=== PATIENT | male | born 1930 | race Caucasian/White ===

== ENCOUNTER 2016-11-08 12:19 | Inpatient (IN) | payer MEDICARE ==
[~2016-11-08] VITALS: Ht 172.7 cm; Wt 110.0 kg
[~2016-11-08 12:19] MED LIST: ACTOS PO; ALLOPURINOL PO; ASPI325T32 PO; D50KC PO; GLUC-113 PO; IRB150T PO; MULT-608 PO; OMEG1CAP51 PO; POLY119P PO; POTA10TA17 PO; SIMV20TA3 PO
--- OUTSIDE RECORDS SUMMARY | 2016-11-08 12:28 | XMS REPORT | Continuity of Care Document ---
Author Author [facility] Organization [facility] Address Unknown Phone Unavailable Allergies Active Description Code Type Severity Reaction Onset Reported/Identified Relationship to Patient Clinical Status Yes No Known Drug Allergies [id number] Drug Allergy Unknown N/ A 02/12/2014 Medications Problems Date Dx Coded Attending Type Code Diagnosis Diagnosed By 08/12/2014 AUTUMN CHAPMAN APRN Ot V43.64 08/12/2014 AUTUMN CHAPMAN APRN Ot V54.81 08/12/2014 AUTUMN CHAPMAN APRN Ot V57.1 Procedures Results Encounters ACCT No. Visit Date/Time Discharge Status Pt. Type Provider Facility Loc./Unit Complaint [id number] 08/21/2014 11:01:00 2014 10:54:00 DIS Outpatient AUTUMN CHAPMAN APRN [facility] REHAB [id number] 03/07/2014 09:30:00 2013 23:59:59 CLS Outpatient [id number] 02/28/2014 10:30:00 2013 23:59:59 CLS Outpatient [id number] 02/28/2014 10:30:00 2013 23:59:59 CLS Outpatient [id number] 02/19/2014 07:06:00 2013 18:10:00 DIS Inpatient [id number] 02/12/2014 10:31:00 2013 23:59:59 CLS Outpatient
--- NOTE | 2016-11-08 13:19 | ED General ---
General Stated Complaint: FLU SYMPTOMS Source of Information: Patient Exam Limitations: No Limitations History of Present Illness Time Seen by Provider: 13:17 Initial Comments To ER from home with reports of flulike symptoms since July. These include cough, shortness of breath general weakness and he also believes himself to be dehydrated. No fevers. He states that he's had no appetite and essentially nothing for the past week Timing/Duration: Intermittent, Other Severity: Moderate Associated Systoms: No Chest Pain, CoughNo Diaphoresis, No Fever/Chills, No Headaches, No Loss of Appetite, MalaiseNo Nausea/Vomiting, No Rash, No Seizure , No Shortness of Air, No Syncope, Weakness Allergies and Home Medications Allergies Coded Allergies: No Known Drug Allergies (Unverified , 02/12/14) Home Medications 20 MG PO DAILY (Reported) 150 MG PO DAILY (Reported) Aspirin 325 Mg Tablet.dr 164.5 MG PO DAILY (Reported) TAKE 1/2 OF (325MG) TAB Ergocalciferol 50,000 Unit Capsule 50,000 UNIT PO WEEKLY (Reported) Gluc 2KCL/Chondr/Gabby Hy/Hy Ac 1 Each Capsule 2 TAB PO DAILY (Reported) Irbesartan 150 Mg Tab 150 MG PO DAILY (Reported) Multivitamins 1 Tab Tablet 1 TAB PO DAILY (Reported) Bethesda-3 Fatty Acids/Fish Oil 1 Each Capsule 2,000 MG PO DAILY (Reported) TAKE 2 (1,000MG) TAB Polyethylene Glycol 119 Gm Btl 17 GM PO DAILY (Reported) Potassium Citrate 10 Meq Tablet.sa 10 MEQ PO DAILY (Reported) Simvastatin 20 Mg Tablet 20 MG PO DAILY (Reported) Constitutional: see HPINo fever EENTM: see HPI Respiratory: see HPI cough Cardiovascular: see HPINo chest pain, edemaNo Hx of Intervention, No palpitations, No syncope, vascular heart diseas (CABG 20 years ago at [facility] in [place]) Genitourinary: no symptoms reported Musculoskeletal: no symptoms reported Skin: no symptoms reported Psychiatric/Neurological: No Symptoms Reported Hematologic/Lymphatic: No Symptoms Reported Immunological/Allergic: no symptoms reported Past Ujankeb-Ltuhwq-Mirrzm Hx Patient Social History Recent Foreign Travel: No Contact w/Someone Who Travel: No Immunizations Up To Date Tetanus Booster (TDap): Unknown Date of Pneumonia Vaccine: Sep 05, 2012 Surgeries HX Surgeries: Yes (FINGERS REATTACHED, TESTICLE REMOVED, RHINOPLASTY, KIDNEY STONES ) Respiratory Hx Respiratory Disorders: Yes (DOESNT' USE CPAP) Respiratory Disorders: Sleep Apnea Cardiovascular Hx Cardiac Disorders: Yes (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, CABG) Neurological Hx Neurological Disorders: No Genitourinary Hx Genitourinary Disorders: No Gastrointestinal Hx Gastrointestinal Disorders: No Musculoskeletal Hx Musculoskeletal Disorders: Yes Musculoskeletal Disorders: Arthritis Endocrine Hx Endocrine Disorders: Yes Endocrine Disorders: Diabetes, Non-Insulin dep Cancer Hx Cancer: Yes Cancer: Skin Psychosocial Hx Psychiatric Problems: No Integumentary HX 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) Skin/Integumentary Disorders: Psoriasis Blood Transfusions Hx Blood Disorders: No Family Medical History Family Medial History: Congestive heart failure 19 FATHER Family history: Cardiovascular disease 19 FATHER Family history: Diabetes mellitus 19 FATHER History of - respiratory disease 19 FATHER No Family History of: Abdominal aortic aneurysm Alcoholism Cancer Family history: Alzheimer's disease Family history: Arthritis Family history: Asthma Family history: Breast disease Family history: Gastrointestinal disease Family history: Hypertension Family history: Thyroid disorder Hereditary disease History of - anemia Kidney disease Myocardial infarction Parkinson's disease Prostate cancer Psychotic disorder Seizure disorder Stroke Physical Exam Vital Signs Vital Sign - Last 12Hours 11/08/16 13:42 Temp 100.6 Pulse 123 Resp 20 B/P 104/53 O2 Delivery Room Air Capillary Refill : General Appearance: No Apparent Distress WD/WN Eyes: Bilateral Eye EOMI, Bilateral Eye Normal Inspection, Bilateral Eye PERRL HEENT: PERRL/EOMI TMs Normal Neck: Full Range of Motion Normal Inspection Respiratory: Chest Non Tender No Accessory Muscle Use No Respiratory Distress Decreased Breath Sounds Cardiovascular: Irregularly Irregular Tachycardia Gastrointestinal: Normal Bowel Sounds Non Tender Soft Extremity: Normal Capillary Refill Pedal Edema (3+ bilateral lower extremities ) Neurologic/Psychiatric: Alert Oriented x3 No Motor/Sensory Deficits Skin: Normal Color Warm/Dry (was) Progress/Results/Core Measures Results/Orders Lab Results Laboratory Tests Test 11/08/16 13:55 Range/Units Alanine Aminotransferase (ALT/SGPT) 15 0-55 U/L Albumin 3.2 3.2-4.5 G/DL Alkaline Phosphatase 102 40-136 U/L Anion Gap 11 5-14 MMOL/L Anisocytosis MARKED Aspartate Amino Transf (AST/SGOT) 17 5-34 U/L B-Type Natriuretic Peptide 262.5 H <100.0 PG/ML BUN/Creatinine Ratio 30 Band Neutrophils 0 % Basophilic Stippling SLIGHT Basophils # (Auto) 0.1 0.0-0.1 10^3/uL Basophils % (Manual) 0 % Basophils (%) (Auto) 1 0-10 % Blood Urea Nitrogen 35 H 7-18 MG/DL Calcium Level 9.1 8.5-10.1 MG/DL Carbon Dioxide Level 20 L 21-32 MMOL/L Chloride Level 101 98-107 MMOL/L Creatinine 1.17 0.60-1.30 MG/DL Eosinophils # (Auto) 0.0 0.0-0.3 10^3/uL Eosinophils % (Manual) 0 % Eosinophils (%) (Auto) 0 0-10 % Estimat Glomerular Filtration Rate 59 Glucose Level 205 H 70-105 MG/DL Hematocrit 22 L 40-54 % Hemoglobin 6.9 *L 13.3-17.7 G/DL Hypochromasia MODERATE INR Comment 1.4 0.8-1.4 Lactic Acid Level 3.18 *H 0.50-2.00 MMOL/L Lymphocytes # (Auto) 2.9 1.0-4.0 X 10^3 Lymphocytes % (Manual) 49 % Lymphocytes (%) (Auto) 59 H 12-44 % Mean Corpuscular Hemoglobin 25 25-34 PG Mean Corpuscular Hemoglobin Concent 31 L 32-36 G/DL Mean Corpuscular Volume 81 80-99 FL Mean Platelet Volume 7.4-10.4 FL Monocytes # (Auto) 1.4 H 0.0-1.0 X 10^3 Monocytes % (Manual) 34 % Monocytes (%) (Auto) 28 H 0-12 % Neutrophils # (Auto) 0.6 L 1.8-7.8 X 10^3 Neutrophils % (Manual) 17 % Neutrophils (%) (Auto) 12 L 42-75 % Nucleated Red Blood Cells 50 Platelet Count 14 *L 130-400 10^3/uL Polychromasia SLIGHT Potassium Level 5.1 H 3.6-5.0 MMOL/L Prothrombin Time 17.0 H 12.2-14.7 SEC Red Blood Count 2.71 L 4.35-5.85 10^6/uL Red Cell Distribution Width 22.4 H 10.0-14.5 % Sodium Level 132 L 135-145 MMOL/L Thyroid Stimulating Hormone (TSH) 1.25 0.35-4.94 UIU/ML Total Bilirubin 1.9 H 0.1-1.0 MG/DL Total Protein 7.4 6.4-8.2 G/DL Troponin I < 0.30 <0.30 NG/ML White Blood Count 3.3 L 4.3-11.0 10^3/uL My Orders Orders-BAILEYRONAL APRN Protime With Inr (11/08/16 12:58) Cbc With Automated Diff (11/08/16 12:58) Troponin I (11/08/16 12:58) BNP (11/08/16 12:58) Comprehensive Metabolic Panel (11/08/16 12:58) Thyroid Stimulating Hormone (11/08/16 12:58) Saline Lock/Iv-Start (11/08/16 12:58) Blood Culture (11/08/16 12:58) Lactic Acid Analyzer (11/08/16 12:58) Ua Culture If Indicated (11/08/16 12:58) Chest Pa/Lat (2 View) (11/08/16 13:26) Ns Iv 1000 Ml (Sodium Chloride 0.9%) (11/08/16 14:15) Red Cells Leukocytes Reduced (11/08/16 14:21) Type And Screen (11/08/16 14:21) Acetaminophen Tablet (Tylenol Tablet) (11/08/16 15:00) Piperacillin Sodium/Tazobactam (Zosyn Vi (11/08/16 15:00) Manual Differential (11/08/16 15:13) Smear For Path Review (11/08/16 15:13) Smear For Path Review (11/08/16 13:55) Medications Given in ED Current Medications Medications Dose Ordered Sig/Karley Route Start Time Stop Time Status Last Admin Dose Admin Acetaminophen 1000 mg 1,000 mg ONCE ONCE PO 11/08/16 15:00 11/08/16 15:01 DC 11/08/16 15:13 1,000 MG Piperacillin Sod/ Tazobactam Sod/ Sodium Chloride 100 ml @ 200 mls/hr ONCE ONCE IV 11/08/16 15:00 11/08/16 15:29 11/08/16 15:19 200 MLS/HR Vital Signs/I&O Vital Sign - Last 12Hours 11/08/16 11/08/16 13:42 15:13 Temp 100.6 100.7 Pulse 123 Resp 20 B/P 104/53 O2 Delivery Room Air Progress Note : Progress Note 1432-I discussed the patient's anemia and low platelet count with him. He denies any dark or tarry stools. He states that he's had no appetite for one week so he has not been eating. He has recent lab work with him and the most recent CBC that I can find is from November 2014 showing a platelet count of 97 and hemoglobin 13.1. Departure Communication Time/Spoke to Admitting Phy: 15:[address] Foster. We will admit the patient, consult for cardiology and hematology. Time/Spoke to Consulting Physi: 15:17 Communication/Consulting Discussed with Dr. Dent who agrees to consult. Recommends transfusion 1 unit of packed red cells, manual differential/peripheral smear Progress Notes Patient's fecal occult blood at the bedside is negative. He does wish to be a DO NOT RESUSCITATE status Impression Impression: Primary Impression: Pancytopenia Additional Impressions: Pneumonia Sepsis Disposition: ADMITTED INPATIENT Condition: Critical Decision to Admit Reason: Admit from ER (General) Decision to Admit/Date: Nov 08, 2016 Departure-Patient Inst. Referrals: MONIQUE VALDES MD (PCP/Family) Primary Care Physician RONAL BAILEY APRN Nov 08, 2016 13:19
[2016-11-08 14:14] LABS: BASOPHILS # (AUTO) 0.1 10^3/uL (0.0-0.1); BASOPHILS % (AUTO) 1 % (0-10); EOSINOPHILS % (AUTO) 0 % (0-10); LYMPHOCYTES # (AUTO) 2.9 X 10^3 (1.0-4.0); LYMPHOCYTES % (AUTO) 59 % (12-44); MEAN CORPUSCULAR HGB CONC 31 G/DL (32-36); MEAN CORPUSCULAR VOLUME 81 FL (80-99); MONOCYTES # (AUTO) 1.4 X 10^3 (0.0-1.0); MONOCYTES % (AUTO) 28 % (0-12); NEUTROPHILS # (AUTO) 0.6 X 10^3 (1.8-7.8); NEUTROPHILS % (AUTO) 12 % (42-75); RED BLOOD COUNT 2.71 10^6/uL (4.35-5.85); RED CELL DISTRIBUTION WIDTH 22.4 % (10.0-14.5)
[2016-11-08] MEDS ORDERED: NS IV 1000 ML 1,000 ML IV SCH (14:15)
[2016-11-08 14:20] LABS: MEAN CORPUSCULAR HEMOGLOBIN 25 PG (25-34)
[2016-11-08 14:22] LABS: PLATELET COUNT 14 10^3/uL (130-400)
[2016-11-08 14:35] LABS: ALANINE AMINOTRANSFERASE 15 U/L (0-55); ALBUMIN 3.2 G/DL (3.2-4.5); ANION GAP 11 MMOL/L (5-14); ASPARTATE AMINO TRANSFERASE 17 U/L (5-34); BILIRUBIN,TOTAL 1.9 MG/DL (0.1-1.0); BLOOD UREA NITROGEN 35 MG/DL (7-18); BUN/CREATININE RATIO 30; CALCIUM 9.1 MG/DL (8.5-10.1); CARBON DIOXIDE 20 MMOL/L (21-32); CHLORIDE 101 MMOL/L (98-107); CREATININE SERUM 1.17 MG/DL (0.60-1.30); GFR ESTIMATED 59; GLUCOSE 205 MG/DL (70-105); POTASSIUM 5.1 MMOL/L (3.6-5.0); SODIUM 132 MMOL/L (135-145); TOTAL PROTEIN 7.4 G/DL (6.4-8.2)
[2016-11-08 14:36] LABS: INR 1.4 (0.8-1.4)
--- NOTE | 2016-11-08 14:42 | Diagnostic Imaging Report ---
INDICATION: Weakness and dyspnea for one month. DISCUSSION: Two views of the chest were obtained, comparison 02/12/2014. [id number] bilateral pleural effusions are present. Patchy opacities are present within the left lung base, atelectasis and/or pneumonia. Mild cardiomegaly is stable. Median sternotomy is again noted. Advanced degenerative changes are present within the shoulders. No acute osseous abnormality. IMPRESSION: 1. Cardiomegaly with [id number] bilateral pleural effusions. No josafat pulmonary edema. 2. Left lung base opacities, atelectasis and/or pneumonia. Dictated by: Dictated on workstation # [id number]
[2016-11-08 14:43] LABS: BAND NEUTROPHILS 0 %; BASOPHILS % (MANUAL) 0 %; EOSINOPHILS % (MANUAL) 0 %; LYMPHOCYTES % (MANUAL) 49 %; NEUTROPHILS % (MANUAL) 17 %; POLYCHROMASIA SLIGHT
[2016-11-08 14:44] LABS: ANISOCYTOSIS MARKED; HYPOCHROMASIA MODERATE
[2016-11-08 14:46] LABS: WHITE BLOOD COUNT 3.3 10^3/uL (4.3-11.0)
[2016-11-08 14:56] LABS: THYROID STIMULATING HORMONE 1.25 UIU/ML (0.35-4.94); TROPONIN I < 0.30 NG/ML (<0.30)
[2016-11-08] MEDS ORDERED: PIPERACILLIN SODIUM/TAZOBACTAM 4.5 GM in NS (IVPB) 100 ML IV ONE (15:00)
[2016-11-08] MEDS ORDERED: ACETAMINOPHEN 500 MG TAB (TYLENOL) PO ONE (15:00)
[2016-11-08 15:27] LABS: PATH WILL NEED TO REVIEW SMEAR PATH TO REVIEW
[2016-11-08 15:28] LABS: RETICULOCYTE % 1.99 % (0.50-2.40)
[2016-11-08 16:20] VITALS: BP 107/68
[2016-11-08] MEDS ORDERED: ACETAMINOPHEN 325 MG TABLET/CAPLET (TYLENOL) PO PRN (16:30)
[2016-11-08] MEDS ORDERED: CATHETER FLUSH 10 ML SYR IV PRN (16:30)
[2016-11-08] MEDS: NS IV 1000 ML 1,000 ML IV SCH ×2 (16:32→23:10)
[2016-11-08] MEDS: NS IV 500 ML 500 ML IV SCH (16:36)
[2016-11-08] MEDS ORDERED: LEVOFLOXACIN 750 MG/150 ML IV 150 ML IV SCH (17:00)
[2016-11-08] MEDS ORDERED: IRBE300T18 PO (17:19)
[2016-11-08] MEDS ORDERED: PIOG30TA38 PO (17:19)
[2016-11-08] MEDS ORDERED: SIMV40TA4 PO (17:19)
--- NOTE | 2016-11-08 17:45 | Consultation-Cardiology ---
HPI-Cardiology Cardiology Consultation: Date of Consultation 11/08/16 Date of Admission Attending Physician Leni Foster DO Admitting Physician Toi Toscano MD Consulting Physician HILARY TARIQ MD, FACP, FACC, [facility] [place], CCDS Physician requesting consult: Dr Foster HPI: Chief Complaint: Malaise and tiredness 86 yo man who had flu-like symptoms in Jul 2016 and since had malaise and tiredness. Symptoms had progressed considerably in the last several days and he decided to come to the ER from where he has been admitted to Dr Foster for management of septicemia and pancytopenia. He has a h/o CABG. We have been asked in cardiac comanagement. He does not report cp or palp or syncope. Does have mod exertional shortness of breath. Has mild chronic leg swelling. Denies recent fever or chills Review of Systems-Cardiology Review of Systems Constitutional: As described under HPI Eyes: No vision change Ears/Nose/Throat: No ear discharge, No nasal drainage, No recent hearing loss Respiratory: As described under HPI Cardiovascular: As described under HPI Gastrointestinal: No constipation, No diarrhea, No nausea, No vomiting Genitourinary: No dysuria, No hematuria, No urine frequency changes Musculoskeletal: back pain (chronic) joint pain (chroic) Skin: No rash, No ulcerations Psychiatric/Neurological: No focal weakness, No seizure, No syncope Hematologic: No bleeding abnormalities UYV-Bmtgxn-Sltbva Hx Patient Social History Alcohol Use: Denies Use Recreational Drug Use: No Smoking Status: Former Smoker 2nd Hand Smoke Exposure: No Recent Foreign Travel: No Recent Infectious Disease Expo: No Hospitalization with Isolation: Denies Physical Abuse Screen: No Sexual Abuse: No Immunizations Up To Date Tetanus Booster (TDap): Unknown Date of Pneumonia Vaccine: Sep 05, 2012 Date of Influenza Vaccine: Jun 05, 2016 Past Medical History PMH As described under Assessment. Family Medical History Family History: Congestive heart failure 19 FATHER Family history: Cardiovascular disease 19 FATHER Family history: Diabetes mellitus 19 FATHER History of - respiratory disease 19 FATHER No Family History of: Abdominal aortic aneurysm Alcoholism Cancer Family history: Alzheimer's disease Family history: Arthritis Family history: Asthma Family history: Breast disease Family history: Gastrointestinal disease Family history: Hypertension Family history: Thyroid disorder Hereditary disease History of - anemia Kidney disease Myocardial infarction Parkinson's disease Prostate cancer Psychotic disorder Seizure disorder Stroke Allergies and Home Medications Allergies Coded Allergies: No Known Drug Allergies (Unverified , 11/08/16) Home Medications Irbesartan 300 Mg Tablet 150 MG PO DAILY (Reported) TAKES 1/2 OF A (300 MG) TABLET Multivitamins 1 Tab Tablet 1 TAB PO DAILY (Reported) Pioglitazone HCl 30 Mg Tablet 15 MG PO DAILY (Reported) TAKES 1/2 OF A (30 MG) TABLET Simvastatin 40 Mg Tablet 20 MG PO DAILY (Reported) TAKES 1/2 OF A (40 MG) TABLET Physical Exam-Cardiology Physical Exam Vital Signs/I&O Vital Sign - Last 12Hours 11/08/16 11/08/16 11/08/16 11/08/16 13:42 15:13 16:20 16:20 Temp 100.6 100.7 98.1 Pulse 123 108 Resp 20 18 B/P 104/53 107/68 Pulse Ox 97 97 O2 Delivery Room Air Room Air Room Air 11/08/16 16:20 Temp 98.1 Pulse 108 Resp 18 B/P 107/68 Pulse Ox 97 O2 Delivery Room Air Capillary Refill : Less Than 3 SecondsLess Than 3 Seconds Constitutional: AAO x 3 well-developed well-nourished HEENT: EOMI hearing is well preservedNo xanthelasmas are seen Neck: carotid pulses are 2 + bilaterally with good upstrokes Respiratory: No accessory muscle use, other (fair bilateral air entry but diminished at the bases) Cardiovascular: regular rate-rhythm S1 and S2 systolic murmur (soft GEETA at cardiac base) Gastrointestinal: No tender, softNo guarding, No rebound, audible bowel sounds Extremities: other (mild bilat leg edema)No clubbing, No cyanosis Neurologic/Psychiatric: grossly intact power is 5/5 both on sides Skin: No rash on exposed areas, No ulcerations on exposed areas Data Review Labs Laboratory Tests 11/08/16 13:55: Absolute Reticulocyte Count 55, Alanine Aminotransferase (ALT/SGPT) 15, Albumin 3.2, Alkaline Phosphatase 102, Anion Gap 11, Anisocytosis MARKED, Aspartate Amino Transf (AST/SGOT) 17, B-Type Natriuretic Peptide 262.5H, BUN/Creatinine Ratio 30, Band Neutrophils 0, Basophilic Stippling SLIGHT, Basophils # (Auto) 0.1, Basophils % (Manual) 0, Basophils (%) (Auto) 1, Blood Urea Nitrogen 35H, Calcium Level 9.1, Carbon Dioxide Level 20L, Chloride Level 101, Creatinine 1.17 , Eosinophils # (Auto) 0.0, Eosinophils % (Manual) 0, Eosinophils (%) (Auto) 0, Estimat Glomerular Filtration Rate 59, Glucose Level 205H, Hematocrit 22L, Hemoglobin 6.9*L, Hypochromasia MODERATE, INR Comment 1.4, Lactic Acid Level 3.18*H, Lymphocytes # (Auto) 2.9, Lymphocytes % (Manual) 49, Lymphocytes (%) ( Auto) 59H, Mean Corpuscular Hemoglobin 25, Mean Corpuscular Hemoglobin Concent 31L, Mean Corpuscular Volume 81, Mean Platelet Volume , Monocytes # (Auto) 1.4H , Monocytes % (Manual) 34, Monocytes (%) (Auto) 28H, Neutrophils # (Auto) 0.6L, Neutrophils % (Manual) 17, Neutrophils (%) (Auto) 12L, Nucleated Red Blood Cells 50, Percent Reticulocyte Count 1.99, Platelet Count 14*L, Polychromasia SLIGHT, Potassium Level 5.1H, Prothrombin Time 17.0H, Red Blood Count 2.71L, Red Cell Distribution Width 22.4H, Sodium Level 132L, Thyroid Stimulating Hormone (TSH) 1.25, Total Bilirubin 1.9H, Total Protein 7.4, Troponin I < 0.30, White Blood Count 3.3L 11/08/16 15:57: Lactic Acid Level 2.05*H Laboratory Tests 11/08/16 13:55 A/P-Cardiology Assessment/Admission Diagnosis * Septicemia * Pancytopenia, including marked anemia and thrombocytopenia * Ac renal insuff, likely due to prerenal azotemia due to volume depletion * No evidence of CHF (despite elevated BNP, which may be related to acute renal failure) * CAD, with a remote history of CABG, details unknown * S/p R hip replacement in 2013 Discussion and Recomendations * Complex management due to multiple comorbidities * iv fluids, given septicemia and pre-renal azotemia * Management of septicemia and pancytopenia is with Dr Foster * Echo to eval LV function * Monitor labs * I spoke with him and his family and answered questions Clinical Quality Measures DVT/VTE Risk/Contraindication: Risk Factor Score Per Nursin RFS Level Per Nursing on Admit: 4+=Very High HILARY TARIQ MD FACP FAC CCDS Nov 08, 2016 17:45
--- NOTE | 2016-11-08 18:08 | Progress Note-Standard ---
Standard Progress Note Progress Notes/Assess & Plan Progress/Assessment & Plan 86-year-old male admitted with 3-4 month history of increasing weakness and body aches with significant worsening of symptoms during the past week. Decreased oral intake during the last week as patient mentions he was not eating at all. Evidence of left lower lobe atelectasis/infiltrate and on broad spectrum antibiotics. Noted to have pancytopenia and hence the hematology consultation. The peripheral smear review confirmed pancytopenia. Patient has significant nucleated red blood cells on the peripheral smear. Red cells markedly abnormal with microcytosis and hypochromia. There is dimorphic population with some normal appearing red blood cells. Increased monocytes or myelocytes on the peripheral smear. Reactive or atypical lymphocytes noted. Markedly decreased platelets with no platelet clumps. Large platelets noted. He will need a bone marrow for further evaluation of pancytopenia. I will plan on doing this tomorrow 11/10/16 afternoon. Full consultation dictated. LUCIA SAUCEDO Nov 08, 2016 18:08
[2016-11-08 18:20] VITALS: BP 88/50
[2016-11-08 18:33] VITALS: BP 81/49
[2016-11-08 20:00] VITALS: BP 109/59
[2016-11-08] MEDS ORDERED: RT-ALBUTEROL/IPRATROPIUM 3 ML (DUONEB) VIAL ONE (20:02)
[2016-11-08 20:38] VITALS: BP 85/50
[2016-11-08] MEDS: PIPERACILLIN/TAZOBACTAM 4.5 GM/NS 100 ML IVPB IV SCH ×2 (20:47)
[2016-11-08] MEDS ORDERED: RT-ALBUTEROL/IPRATROPIUM 3 ML (DUONEB) VIAL INH PRN (21:00)
[2016-11-09] VITALS (20 sets, daily range): BP systolic 69–127; BP diastolic 49–82
[2016-11-09] MEDS: guaiFENesin/DM (ROBITUSSIN DM) 10 ML UDC PO PRN ×2 (01:02→06:39)
[2016-11-09] MEDS: NS IV 1000 ML 1,000 ML IV SCH ×2 (03:03→09:31)
[2016-11-09] MEDS: PIPERACILLIN/TAZOBACTAM 4.5 GM/NS 100 ML IVPB IV SCH ×6 (05:30→23:09)
[2016-11-09] MEDS: RT-ALBUTEROL/IPRATROPIUM 3 ML (DUONEB) VIAL INH SCH ×4 (06:26→20:36)
[2016-11-09 06:27] LABS: MEAN CORPUSCULAR HEMOGLOBIN 26 PG (25-34); MEAN CORPUSCULAR HGB CONC 32 G/DL (32-36); MEAN CORPUSCULAR VOLUME 82 FL (80-99); RED CELL DISTRIBUTION WIDTH 21.6 % (10.0-14.5)
[2016-11-09 06:30] LABS: PLATELET COUNT 23 10^3/uL (130-400)
[2016-11-09 06:52] LABS: CALCIUM 8.6 MG/DL (8.5-10.1); CREATININE SERUM 1.29 MG/DL (0.60-1.30); POTASSIUM 5.2 MMOL/L (3.6-5.0)
[2016-11-09 07:00] LABS: WHITE BLOOD COUNT 7.6 10^3/uL (4.3-11.0)
[2016-11-09 07:02] LABS: RED BLOOD COUNT 2.93 10^6/uL (4.35-5.85)
[2016-11-09 07:16] LABS: THYROID STIMULATING HORMONE 1.02 UIU/ML (0.35-4.94)
[2016-11-09] MEDS ORDERED: morphine INJ 10 MG/ML 1ML (SYR OR VIAL) ONE (09:26)
[2016-11-09] MEDS ORDERED: morphine INJ 4 MG/ML 1 ML (VIAL/SYRINGE) IVP PRN (09:30)
--- NOTE | 2016-11-09 10:03 | Progress Note-Cardiology ---
Cardiology SOAP Progress Note Subjective: C/O dyspnea with productive cough. No c/o CP, palpitations, syncope or near syncope. C/O gen weakness. Objective: I&O/Vital Signs Vital Sign - Last 12Hours 11/09/16 11/09/16 11/09/16 11/09/16 06:26 07:00 08:00 08:00 Temp 99.5 Pulse 102 108 Resp 24 B/P 108/60 Pulse Ox 92 99 O2 Delivery Nasal Cannula Room Air O2 Flow Rate 2.00 2.00 2.00 11/09/16 11/09/16 11/09/16 11/09/16 09:32 10:10 10:25 12:00 Temp 99.5 99.5 99.9 Pulse 102 Resp 24 B/P 122/82 Pulse Ox 94 96 O2 Delivery Nasal Cannula O2 Flow Rate 2.00 2.00 11/09/16 11/09/16 13:00 14:36 Pulse 101 Pulse Ox 91 O2 Flow Rate 4.00 Intake and Output 11/09/16 00:00 Intake Total 1350 ml Output Total 200 ml Balance 1150 ml Weight (Pounds): 232 Weight (Ounces): 0.0 Weight (Calculated Kilograms): [id number] Constitutional: AAO x 3 well-developed well-nourished Respiratory: No accessory muscle use, other (fair bilateral air entry but diminished at the bases) Cardiovascular: regular rate-rhythm S1 and S2 systolic murmur (soft GEETA at cardiac base) Gastrointestional: No tender, softNo guarding, No rebound, audible bowel sounds Extremities: other (mild bilat leg edema)No clubbing, No cyanosis Neurologic/Psychiatric: grossly intact power is 5/5 both on sides Skin: No rash on exposed areas, No ulcerations on exposed areas Results/Procedures: Labs Laboratory Tests 11/09/16 05:40: Anion Gap 13, BUN/Creatinine Ratio 29, Basophils # (Auto) , Basophils (%) (Auto ) , Blood Urea Nitrogen 37H, Calcium Level 8.6, Carbon Dioxide Level 16L, Chloride Level 103, Creatinine 1.29, Eosinophils # (Auto) , Eosinophils (%) ( Auto) , Estimat Glomerular Filtration Rate 53, Glucose Level 221H, Hematocrit 24L, Hemoglobin 7.7L, Lactate Dehydrogenase 186, Lymphocytes # (Auto) , Lymphocytes (%) (Auto) , Mean Corpuscular Hemoglobin 26, Mean Corpuscular Hemoglobin Concent 32, Mean Corpuscular Volume 82, Mean Platelet Volume , Monocytes # (Auto) , Monocytes (%) (Auto) , Neutrophils # (Auto) , Neutrophils ( %) (Auto) , Platelet Count 23*L, Potassium Level 5.2H, Red Blood Count 2.93L, Red Cell Distribution Width 21.6H, Sodium Level 132L, Thyroid Stimulating Hormone (TSH) 1.02, White Blood Count 7.6 Microbiology 11/08/16 Blood Culture - Preliminary, Resulted No growth A/P: Assessment: * Septicemia with metabolic acidosis * Pancytopenia, including marked anemia and thrombocytopenia * A fib with RVR * Not suitable for anticoag due to pancytopenia and coagulopathy * Ac renal insuff * Ac diastolic CHF (LVEF normal on echo of 11/09/16) * CAD, with a remote history of CABG, details unknown * S/p R hip replacement in 2013 Plan: * Complex management due to multiple comorbidities * iv fluids, given septicemia and pre-renal azotemia * Septicemia with metabolic acidosis being managed by medical services * Management of septicemia and pancytopenia is with Dr Foster * Echo to eval LV function - pending * Monitor labs Physician Assessment Physician Assessment More short of breath today Lungs: dec bs at bases Cor: irreg, tachy Mild bilat leg swelling Low urine output ECG: A fib with RVR A&R * As documented in our note above that I updated at the time of this writing * Complex management due to multiple comorbidities * I discussed his case in detail with Dr Ochoa of the Heme/Onc service * I have requested Pulm/Intensive Care consult with Dr Machado * We are starting oral dilt for vent rate control * He is not suitable for anticoag or antiplatelet therapy, given pancytopenia and coagulopathy * He seems to have a component of heart failure (acute diastolic) likely related to a fib with RVR. We will give furosemide x 1 DANIELLE LEI Nov 09, 2016 10:03 HILARY TARIQ MD [facility] Nov 09, 2016 16:21
[2016-11-09] MEDS ORDERED: ONDANSETRON 4 MG/2 ML (SDV) Z0FRAN IVP PRN (10:30)
--- NOTE | 2016-11-09 11:26 | CONSULTATION REPORT ---
DATE OF CONSULTATION: 11/09/2016 The patient is admitted to room 412 PHYSICIAN REQUESTING CONSULTATION: Leni Foster D.O. PRIMARY PHYSICIAN: Toi Toscano M.D. IMPRESSION: 1. 86-year-old male admitted with a few month history of increasing weakness but no significant history of fevers or infections, bleeding or weight loss. 2. Left lower lobe pneumonia, currently on broad spectrum antibiotics. 3. Pancytopenia of undetermined etiology with leukoerythroblastic picture in the peripheral smear. PLAN: 1. Agree with PRBC transfusion because of symptomatic anemia. 2. The patient will need a bone marrow aspiration and biopsy for further evaluation of pancytopenia. 3. Obtain serum iron studies, B12 and folate level from the lab work drawn in the emergency room. 4. We will schedule a bone marrow aspiration and biopsy on 11/10/2016. 5. Continue management of pneumonia, as you are doing with broad spectrum antibiotics. 6. Monitor blood work serially. 7. Will follow the patient with you. BRIEF HISTORY: Mr. Mulligan is a n 86-year-old male who has not been feeling well since the last 4 months with flulike symptoms which has not improved. He is having increasing shortness of breath and weakness over this time to the point that he has been almost bedridden during the last one week and has not been eating or drinking well. He denied fevers or chills, but has not been monitoring his temperature. He has easy bruising, but denied any significant bleeding. No chest pain, palpitations, orthopnea or PND. He had fairly significant dyspnea on exertion during the past few weeks. No diarrhea, constipation, hematochezia or melena. PAST MEDICAL HISTORY: 1. Significant for diabetes mellitus, type II diagnosed more than 30 years ago. He is on oral agents and diet with reasonable control of diabetes. 2. History of coronary artery disease, status post 5 or 6 vessel CABG approximately 20 years ago. 3. History of nephrolithiasis requiring lithotripsy. 4. 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 SURGERIES INCLUDE: 1. Injury to his finger which required surgical reattachment. 2. Rhinoplasty in the past. 3. Orchiectomy in the past, but he does not remember the indication. 4. He was diagnosed with obstructive sleep apnea in the past but could not tolerate the CPAP machine and has not been using this. 5. 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 SOCIAL HISTORY: The patient is and [place]. He has two living sons, both of whom live in [place]. He youngest son checks on him on a weekly basis. He has smoked for 10 years, but quit smoking by 27 years of age. He denied any significant alcohol or other recreational drug use. 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 He worked at [employer] for 5 years. 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 FAMILY HISTORY: Unremarkable with no major malignancies or hematologic problems that he knows of. PHYSICAL EXAMINATION: Today showed an elderly male, weak appearing, awake, and oriented, and answering questions appropriately. Temperature at the emergency room was 100.6, pulse rate of 123, respiratory rate 20, blood pressure 104/53. HEENT: Normocephalic, with male pattern baldness. Extraocular muscles intact. Conjunctivae pale, oral mucosa moist. NECK: Supple with no JVD. No cervical, supraclavicular, or axillary lymphadenopathy palpable. CHEST: Chest was symmetrical with previous sternotomy scar. LUNGS: With slightly diminished breath sounds bilaterally but no wheezes or rales heard. CARDIOVASCULAR EXAM: Regular with slightly distant sounds. No murmurs or gallops heard. ABDOMEN: Slightly distended, soft, nontender, with no definite hepatosplenomegaly or other masses palpable. EXTREMITIES: Showed trace edema around the ankles and few ecchymosis but no petechiae noted. NEUROLOGICAL EXAM: Showed no focal motor deficits. Overall motor strength was 4/5 bilaterally. LABORATORY: CBC done at the emergency room showed WBC 3.3, hemoglobin 6.9, with MCV 81 RDW 22.4, and platelet count of 14,000. Automated differential count showed neutrophil count of 0.6, lymphocyte count 2.9, and monocyte count 1.4. I reviewed the peripheral smear which showed the red cells to be markedly abnormal with microcytosis hyperchromia, as well as a dimorphic population with some normal appearing red blood cells. A significant number of nucleated red blood cells noted. White blood cells showed increase in either monocytes or myelocytes. Neutrophils were markedly decreased and appeared hypogranular. Reactive or atypical lymphocytes noted. Platelets were markedly decreased without any clumps noted. A few large platelets were of noted. Chest x-ray done at the emergency room showed cardiomegaly with mild to moderate bilateral pleural effusions. Left lung base opacities represented either atelectasis and/or pneumonia. Thank you for allowing me to take participate in this patient's care. I will follow the patient with you and make appropriate recommendations. Job ID: [id number] Dictated Date: 11/08/2016 18:17:41 Recovery Analyst Date: 11/09/2016 11:04:19/amadeo MIGUEL
--- NOTE | 2016-11-09 12:30 | History & Physical-Hospitalist ---
HPI History of Present Illness: HPI/Chief Complaint Mr. Mulligan is an 86-year-old white male who called our office on the afternoon of the . He stated that he was too weak to get of his chair and not felt well for several weeks. He is instructed to call EMS services to bring him to the emergency room as this is very uncharacteristic 6 Gabriel who lives alone at home and is self-sufficient normally cuts his own firewood etc. He reports shortness of breath currently was in [id number] respiratory distress and slightly confused. History taking was difficult secondary to this. He denied chills or fever reporting poor by mouth intake for the past week and extreme fatigue. To me he estimated that he had not felt well for a month on Dr. Powell interview yesterday he had indicated that it may have been longer. he denied chest pain orthopnea PND or lower extremity edema. He also denied sore throat head congestion or myalgia. I will need to review my office records but I had not seen him since last fall. He has a past history of coronary artery disease long-standing hypertension and diabetes that have been under control on oral agents. Date Seen 11/09/16 Attending Physician Leni Foster Mark D MD Referring Physician Date of Admission Nov 08, 2016 at 15:26 Home Medications & Allergies Home Medications Reviewed patient Home Medication Reconciliation Form Allergies Coded Allergies: No Known Drug Allergies (Unverified , 11/08/16) Past Hgsewvs-Nfotgl-Aismtz Hx Patient Social History Alcohol Use: Denies Use Recreational Drug Use: No Smoking Status: Former Smoker 2nd Hand Smoke Exposure: No Physical Abuse Screen: No Sexual Abuse: No Recent Foreign Travel: No Contact w/other who traveled: No Recent Hopitalizations: No Recent Infectious Disease Expo: No Immunizations Up To Date Tetanus Booster (TDap): Unknown Date of Pneumonia Vaccine: Sep 05, 2012 Date of Influenza Vaccine: Jun 05, 2016 Seasonal Allergies Seasonal Allergies: No Surgeries HX Surgeries: Yes (FINGERS REATTACHED, TESTICLE REMOVED, RHINOPLASTY, KIDNEY STONES , R HIP) Surgeries: Nose, Orthopedic Respiratory Hx Respiratory Disorders: Yes (DOESNT' USE CPAP) Cardiovascular Hx Cardiovascular Disorders: Yes (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, CABG X 6) Cardiac Disorders: Heart Attack, Heart Murmur, Irregular Heartbeat, Valvular Heart Disease Neurological Hx Neurological Disorders: No Reproductive System Hx Reproductive Disorders: No Genitourinary Hx Genitourinary Disorders: No Genitourinary Disorders: Kidney Stones Gastrointestinal Hx Gastrointestinal Disorders: No Musculoskeletal Hx Musculoskeletal Disorders: Yes Musculoskeletal Disorders: Arthritis Endocrine Hx Endocrine Disorders: Yes Endocrine Disorders: Diabetes, Non-Insulin dep HEENT HX ENT Disorders: Yes (GLASSES) Loss of Vision: Denies Hearing Impairment: Denies Cancer Hx Cancer: No Cancer: Skin Psychosocial Hx Psychiatric Problems: No Integumentary HX Skin/Integumentary Disorder: Yes Skin/Integumentary Disorders: Psoriasis Blood Transfusions Hx Blood Disorders: No Family Medical History Family Hx: Congestive heart failure 19 FATHER Family history: Cardiovascular disease 19 FATHER Family history: Diabetes mellitus 19 FATHER History of - respiratory disease 19 FATHER No Family History of: Abdominal aortic aneurysm Alcoholism Cancer Family history: Alzheimer's disease Family history: Arthritis Family history: Asthma Family history: Breast disease Family history: Gastrointestinal disease Family history: Hypertension Family history: Thyroid disorder Hereditary disease History of - anemia Kidney disease Myocardial infarction Parkinson's disease Prostate cancer Psychotic disorder Seizure disorder Stroke Review of Systems Constitutional: see HPI Physical Exam Physical Exam Vital Signs Vital Sign - Last 12Hours 11/08/16 11/08/16 11/08/16 13:42 16:00 20:07 Temp 100.6 Pulse 123 Resp 20 B/P 104/53 Pulse Ox 90 O2 Delivery Room Air O2 Flow Rate 2.00 Capillary Refill : Less Than 3 SecondsLess Than 3 Seconds General Appearance: Moderate Distress HEENT: TMs Normal Pharynx Normal Pale Conjunctivae (L) Pale Conjunctivae (R) Neck: Non Tender Other (decreased range of motion but unchanged from baseline as 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 Dry cough is noted with inspiration.) Cardiovascular: Regular Rate, Rhythm No Edema No JVD No Murmur Gallop/S4 Gastrointestinal: Normal Bowel Sounds No Organomegaly Soft Other (mild left upper quadrant abdominal discomfort was not able to appreciate any evidence for organomegaly or splenomegaly) Extremity: No Calf Tenderness No Pedal Edema Other (purpura are noted and IV sites no petechiae are noted.) Neurologic/Psychiatric: Alert (anxious) Skin: Damp Pallor Comments Laboratory Tests Test 11/08/16 13:55 11/08/16 15:57 11/09/16 05:40 Range/Units Absolute Reticulocyte Count 55 24-90 10e9/L Alanine Aminotransferase (ALT/SGPT) 15 0-55 U/L Albumin 3.2 3.2-4.5 G/DL Alkaline Phosphatase 102 40-136 U/L Anion Gap 11 13 5-14 MMOL/L Anisocytosis MARKED Aspartate Amino Transf (AST/SGOT) 17 5-34 U/L B-Type Natriuretic Peptide 262.5 H <100.0 PG/ML BUN/Creatinine Ratio 30 29 Band Neutrophils 0 % Basophilic Stippling SLIGHT Basophils # (Auto) 0.1 0.0-0.1 10^3/uL Basophils % (Manual) 0 % Basophils (%) (Auto) 1 0-10 % Blood Urea Nitrogen 35 H 37 H 7-18 MG/DL Calcium Level 9.1 8.6 8.5-10.1 MG/DL Carbon Dioxide Level 20 L 16 L 21-32 MMOL/L Chloride Level 101 103 98-107 MMOL/L Creatinine 1.17 1.29 0.60-1.30 MG/DL Eosinophils # (Auto) 0.0 0.0-0.3 10^3/uL Eosinophils % (Manual) 0 % Eosinophils (%) (Auto) 0 0-10 % Estimat Glomerular Filtration Rate 59 53 Glucose Level 205 H 221 H 70-105 MG/DL Hematocrit 22 L 24 L 40-54 % Hemoglobin 6.9 *L 7.7 L 13.3-17.7 G/DL Hypochromasia MODERATE INR Comment 1.4 0.8-1.4 Iron Level 87 40-180 ug/dL Lactic Acid Level 3.18 *H 2.05 *H 0.50-2.00 MMOL/L Lymphocytes # (Auto) 2.9 1.0-4.0 X 10^3 Lymphocytes % (Manual) 49 % Lymphocytes (%) (Auto) 59 H 12-44 % Mean Corpuscular Hemoglobin 25 26 25-34 PG Mean Corpuscular Hemoglobin Concent 31 L 32 32-36 G/DL Mean Corpuscular Volume 81 82 80-99 FL Mean Platelet Volume 7.4-10.4 FL Monocytes # (Auto) 1.4 H 0.0-1.0 X 10^3 Monocytes % (Manual) 34 % Monocytes (%) (Auto) 28 H 0-12 % Neutrophils # (Auto) 0.6 L 1.8-7.8 X 10^3 Neutrophils % (Manual) 17 % Neutrophils (%) (Auto) 12 L 42-75 % Nucleated Red Blood Cells 50 Percent Reticulocyte Count 1.99 0.50-2.40 % Platelet Count 14 *L 23 *L 130-400 10^3/uL Polychromasia SLIGHT Potassium Level 5.1 H 5.2 H 3.6-5.0 MMOL/L Prothrombin Time 17.0 H 12.2-14.7 SEC Red Blood Count 2.71 L 2.93 L 4.35-5.85 10^6/uL Red Cell Distribution Width 22.4 H 21.6 H 10.0-14.5 % Sodium Level 132 L 132 L 135-145 MMOL/L Thyroid Stimulating Hormone (TSH) 1.25 1.02 0.35-4.94 UIU/ML Total Bilirubin 1.9 H 0.1-1.0 MG/DL Total Iron Binding Capacity 242 L 280-380 ug/dL Total Protein 7.4 6.4-8.2 G/DL Transferrin % Saturation 36 15-50 % Troponin I < 0.30 <0.30 NG/ML Unsaturated Iron Binding Capacity 155 55-450 ug/dL White Blood Count 3.3 L 7.6 4.3-11.0 10^3/uL Lactate Dehydrogenase 186 125-220 U/L Results Results/Procedures Lab Laboratory Tests 11/08/16 13:55 11/09/16 05:40 Assessment/Plan Admission Diagnosis 1. Pancytopenia with questionable pneumonia. Considering pancytopenia and immune compromise status agree with broad-spectrum antibiotics as underlying sepsis is possible. Prognosis is quite poor as numerous life-threatening illnesses are possible with bone marrow biopsy to evaluate for myelodysplastic syndromes, aplastic anemia leukemia etc. is pending per Dr. Powell. For this patient's previous as well as ongoing wishes will continue DO NOT RESUSCITATE status. We'll initiate low-dose morphine and when necessary anti-emetic therapy. 2. Hypertension we'll be holding antihypertensive therapy. 3. Type II diabetes mellitus will be holding oral hypoglycemics at this time. We will continue to monitor. 4. History of coronary artery disease. Clinical Quality Measures DVT/VTE Risk/Contraindication: Risk Factor Score Per Nursin RFS Level Per Nursing on Admit: 4+=Very High MONIQUE VALDES MD Nov 09, 2016 12:30
--- NOTE | 2016-11-09 16:12 | Progress Note-Standard ---
Standard Progress Note Progress Notes/Assess & Plan Progress/Assessment & Plan 86-year-old male admitted with 3-4 month history of increasing weakness and body aches with significant worsening of symptoms during the past week. Noted to have pancytopenia and attempted bone marrow aspiration and biopsy today. Patient is unable to lay down on his side for the procedure because of significant shortness of breath. He has significant pitting edema of his lower back. he was tachycardic with a heart rate between 135 and 145 when he was laying flat. Oxygen saturation was between 91-95 percent on 3-6 L of oxygen by nasal cannula. The procedure was terminated. I have discussed the case with Dr. Toscano and we will administer another unit of packed red blood cell today to try to maintain his hemoglobin more than 8 g/dL. I will also administer 1 dose of Lasix [address] a Klein catheter for patient's comfort. I have discussed the case with mentioned that his echocardiogram showed normal cardiac function. Because of the tachycardia, he will obtain an EKG. He also ordered pulmonary evaluation. I will hold off on the bone marrow aspiration biopsy until patient is more stable. Repeat lab work tomorrow. LUCIA SAUCEDO Nov 09, 2016 16:12
[2016-11-09] MEDS ORDERED: FUROSEMIDE 40 MG/4 ML INJ (LASIX) IVP NR (16:15)
[2016-11-09] MEDS ORDERED: LIDOCAINE UROJET 2% GEL 10 ML PKG ONE (16:28)
[2016-11-09] MEDS ORDERED: DILTIAZEM 300 MG (CARDIZEM CD) CAP PO NR (16:40)
--- NOTE | 2016-11-09 16:51 | Pulmonary Consultation ---
History of Present Illness History of Present Illness Date of Consultation 11/09/16 16:45 Date of Admission History of Present Illness 86yo who has had worsening SOB and weakness over the last 4 months. He has been bedridden over the last week. Pt was found to have pancytopenia upon admission. Dr. Ochoa attempted bone marrow aspiration today and had to stop secondary to worsening SOB. Allergies and Home Medications Allergies Coded Allergies: No Known Drug Allergies (Unverified , 11/08/16) Home Medications Irbesartan 300 Mg Tablet 150 MG PO DAILY (Reported) TAKES 1/2 OF A (300 MG) TABLET Multivitamins 1 Tab Tablet 1 TAB PO DAILY (Reported) Pioglitazone HCl 30 Mg Tablet 15 MG PO DAILY (Reported) TAKES 1/2 OF A (30 MG) TABLET Simvastatin 40 Mg Tablet 20 MG PO DAILY (Reported) TAKES 1/2 OF A (40 MG) TABLET Past Jqilzsv-Xreztm-Uzxxne Hx Patient Social History Alcohol Use: Denies Use Recreational Drug Use: No Smoking Status: Former Smoker 2nd Hand Smoke Exposure: No Recent Foreign Travel: No Contact w/Someone Who Travel: No Recent Infectious Disease Expo: No Recent Hopitalizations: No Physical Abuse Screen: No Sexual Abuse: No Immunizations Up To Date Tetanus Booster (TDap): Unknown Date of Pneumonia Vaccine: Sep 05, 2012 Date of Influenza Vaccine: Jun 05, 2016 Seasonal Allergies Seasonal Allergies: No Surgeries HX Surgeries: Yes (FINGERS REATTACHED, TESTICLE REMOVED, RHINOPLASTY, KIDNEY STONES , R HIP) Surgeries: Nose, Orthopedic Respiratory Hx Respiratory Disorders: Yes (DOESNT' USE CPAP) Respiratory Disorders: Sleep Apnea Cardiovascular Hx Cardiac Disorders: Yes (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, CABG X 6) Cardiac Disorders: Heart Attack, Heart Murmur, Irregular Heartbeat, Valvular Heart Disease Neurological Hx Neurological Disorders: No Reproductive System Hx Reproductive Disorders: No Genitourinary Hx Genitourinary Disorders: No Genitourinary Disorders: Kidney Stones Gastrointestinal Hx Gastrointestinal Disorders: No Musculoskeletal Hx Musculoskeletal Disorders: Yes Musculoskeletal Disorders: Arthritis Endocrine Hx Endocrine Disorders: Yes Endocrine Disorders: Diabetes, Non-Insulin dep HEENT HX ENT Disorders: Yes (GLASSES) Loss of Vision: Denies Hearing Impairment: Denies Cancer Hx Cancer: No Cancer: Skin Psychosocial Hx Psychiatric Problems: No Integumentary HX Skin/Integumentary Disorder: Yes Skin/Integumentary Disorders: Psoriasis Blood Transfusions Hx Blood Disorders: No Family Medical History Family Medial History: Congestive heart failure 19 FATHER Family history: Cardiovascular disease 19 FATHER Family history: Diabetes mellitus 19 FATHER History of - respiratory disease 19 FATHER No Family History of: Abdominal aortic aneurysm Alcoholism Cancer Family history: Alzheimer's disease Family history: Arthritis Family history: Asthma Family history: Breast disease Family history: Gastrointestinal disease Family history: Hypertension Family history: Thyroid disorder Hereditary disease History of - anemia Kidney disease Myocardial infarction Parkinson's disease Prostate cancer Psychotic disorder Seizure disorder Stroke Exam Exam Vital Signs Date Time Temp Pulse Resp B/P Pulse Ox O2 Delivery O2 Flow Rate FiO2 11/09/16 14:36 91 4.00 11/09/16 13:00 101 11/09/16 12:00 99.9 102 24 122/82 96 Nasal Cannula 2.00 11/09/16 10:25 94 2.00 11/09/16 10:10 99.5 11/09/16 09:32 99.5 11/09/16 08:00 Room Air 2.00 11/09/16 08:00 99.5 108 24 108/60 99 Nasal Cannula 2.00 11/09/16 07:00 102 11/09/16 06:26 92 2.00 11/09/16 04:00 98.9 105 24 110/59 97 Nasal Cannula 2.00 11/09/16 01:00 120 11/09/16 00:39 98.7 96 20 105/58 98 Nasal Cannula 2.00 11/09/16 00:38 97 2.00 11/08/16 21:00 Room Air 2.00 11/08/16 20:38 98.6 89 16 85/50 95 2.00 11/08/16 20:30 Nasal Cannula 2.00 11/08/16 20:07 98 2.00 11/08/16 20:07 98 11/08/16 20:00 97.5 104 28 109/59 92 Room Air 11/08/16 19:00 96 11/08/16 18:40 99.1 11/08/16 18:33 99.1 122 16 81/49 94 11/08/16 18:20 99.2 100 20 88/50 93 I & O 11/09/16 07:00 Intake Total 2550 ml Output Total 300 ml Balance 2250 ml General Appearance: Moderate Distress HEENT: TMs Normal Pharynx Normal Pale Conjunctivae (L) Pale Conjunctivae (R) Neck: Non Tender Other (decreased range of motion but unchanged from baseline as 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 Dry cough is noted with inspiration.) Cardiovascular: Regular Rate, Rhythm No Edema No JVD No Murmur Gallop/S4 Capillary Refill: Less Than 3 Seconds Extremity: No Calf Tenderness No Pedal Edema Other (purpura are noted and IV sites no petechiae are noted.) Neurologic/Psychiatric: Alert (anxious) Skin: Damp Pallor Results Lab Laboratory Tests 11/08/16 13:55 11/09/16 05:40 Assessment/Plan Assessment/Plan Worsening SOB with bilateral pleural effusions Currently Sp02 is 98% on 6l iter NC -Pt was given lasix today may need to repeat lasix if SOB worsens. -BiPAP PRN Sepsis with metabolic acidosis -Pt has bilateral pleural effusion BP is stable will not be aggressive with IVF -2 amps of NaHCO3 -Levaquin, and zosyn Pancytopenia with significant thrombocytopenia of 23 -Will plan on giving platelets and doing thoracentesis tomorrow Hyperkalemia -bicarb 2 amps s/p lasix Afib RVR -Cardiology following -Cardizem po currently Acute renal failure Diastolic CHF Transfer patient to ICU for closer monitoring Clinical Quality Measures DVT/VTE Risk/Contraindication: Risk Factor Score Per Nursin RFS Level Per Nursing on Admit: 4+=Very High MALLY CALVILLO DO Nov 09, 2016 16:51 MALLY CALVILLO DO Nov 09, 2016 16:51
[2016-11-09 16:58] LABS: ABG BASE EXCESS -12.6 MMOL/L (-2.5-2.5); ABG OXYGEN SATURATION 94 % (94-100); ABG PCO2 38 MMHG (35-45); ABG PO2 78 MMHG (79-93); ABG TCO2 14.9 MMOL/L (21.0-31.0)
[2016-11-09 17:02] LABS: ABG HCO3 14 MMOL/L (23-27); ABG PH 7.19 (7.37-7.43); ALLENS TEST YES-POS; PATIENT TEMP 100.5
[2016-11-09] MEDS ORDERED: NS IV 500 ML 500 ML ONE (17:03)
[2016-11-09] MEDS: NS IV 500 ML 500 ML IV SCH (17:08)
[2016-11-09] MEDS ORDERED: SODIUM BICARB 8.4% 50 MEQ/50 ML (ABBOTT) SYR IV NR (17:15)
[2016-11-09] MEDS ORDERED: NS IV 500 ML 500 ML IV SCH (18:45)
[2016-11-09] MEDS ORDERED: SODIUM BICARB 8.4% 50 MEQ/50 ML (ABBOTT) SYR IV ONE (22:15)
--- NOTE | 2016-11-09 23:01 | Consultation ---
History of Present Illness History of Present Illness Patient Consulted On(ollie/time) 11/09/16 22:57 Date of Admission History of Present Illness Surgery is asked to consult regarding central line placement. This was entered after central line placement, but exam done prior to procedure. Consult was needed because of pt's pancytopenia to assess ability to do central line. HPI: Mr. Mulligan is an 86-year-old white male who states he was too weak to get of his chair and not felt well for several weeks. He is instructed to call EMS services to bring him to the emergency room. He reports shortness of breath currently was in [id number]-lobfihap respiratory distress and slightly confused. History taking was difficult secondary to this; he has bi-pap on. He denied chills or fever reporting poor by mouth intake for the past week and extreme fatigue. He told Dr. Powell in the interview yesterday he had may have been sick with "flu like symptoms for 4 months and felt run down". He also reported easy bruising and bleeding. He denied chest pain orthopnea PND or lower extremity edema. He also denied sore throat head congestion or myalgia. Allergies and Home Medications Allergies Coded Allergies: No Known Drug Allergies (Unverified , 11/08/16) Home Medications Irbesartan 300 Mg Tablet 150 MG PO DAILY (Reported) TAKES 1/2 OF A (300 MG) TABLET Multivitamins 1 Tab Tablet 1 TAB PO DAILY (Reported) Pioglitazone HCl 30 Mg Tablet 15 MG PO DAILY (Reported) TAKES 1/2 OF A (30 MG) TABLET Simvastatin 40 Mg Tablet 20 MG PO DAILY (Reported) TAKES 1/2 OF A (40 MG) TABLET Past Yqpqoea-Nqyxoz-Bxeyfl Hx Patient Social History Alcohol Use: Denies Use Recreational Drug Use: No Smoking Status: Former Smoker 2nd Hand Smoke Exposure: No Recent Foreign Travel: No Contact w/Someone Who Travel: No Recent Infectious Disease Expo: No Recent Hopitalizations: No Physical Abuse Screen: No Sexual Abuse: No Immunizations Up To Date Tetanus Booster (TDap): Unknown Date of Pneumonia Vaccine: Sep 05, 2012 Date of Influenza Vaccine: Jun 05, 2016 Seasonal Allergies Seasonal Allergies: No Surgeries HX Surgeries: Yes (FINGERS REATTACHED, TESTICLE REMOVED, RHINOPLASTY, KIDNEY STONES , R HIP) Surgeries: Nose, Orthopedic Respiratory Hx Respiratory Disorders: Yes (DOESNT' USE CPAP) Respiratory Disorders: Sleep Apnea Cardiovascular Hx Cardiac Disorders: Yes (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, CABG X 6) Cardiac Disorders: Heart Attack, Heart Murmur, Irregular Heartbeat, Valvular Heart Disease Neurological Hx Neurological Disorders: No Reproductive System Hx Reproductive Disorders: No Genitourinary Hx Genitourinary Disorders: No Genitourinary Disorders: Kidney Stones Gastrointestinal Hx Gastrointestinal Disorders: No Musculoskeletal Hx Musculoskeletal Disorders: Yes Musculoskeletal Disorders: Arthritis Endocrine Hx Endocrine Disorders: Yes Endocrine Disorders: Diabetes, Non-Insulin dep HEENT HX ENT Disorders: Yes (GLASSES) Loss of Vision: Denies Hearing Impairment: Denies Cancer Hx Cancer: No Cancer: Skin Psychosocial Hx Psychiatric Problems: No Integumentary HX Skin/Integumentary Disorder: Yes Skin/Integumentary Disorders: Psoriasis Blood Transfusions Hx Blood Disorders: No Family Medical History Significant Family History: Diabetes (father) Family Medial History: Congestive heart failure 19 FATHER Family history: Cardiovascular disease 19 FATHER Family history: Diabetes mellitus 19 FATHER History of - respiratory disease 19 FATHER No Family History of: Abdominal aortic aneurysm Alcoholism Cancer Family history: Alzheimer's disease Family history: Arthritis Family history: Asthma Family history: Breast disease Family history: Gastrointestinal disease Family history: Hypertension Family history: Thyroid disorder Hereditary disease History of - anemia Kidney disease Myocardial infarction Parkinson's disease Prostate cancer Psychotic disorder Seizure disorder Stroke Review of Systems-General Constitutional: chills diaphoresis fever malaise weakness weight loss EENTM: No blurred vision, No epistaxis, No mouth swelling, No throat swelling Respiratory: cough dyspnea on exertion short of breath Cardiovascular: No chest pain, No edema, No palpitations Gastrointestinal: No abdominal pain, No dysphagia, No hematemesis Musculoskeletal: joint pain joint swelling muscle stiffness Psychiatric/Neurological: Denies Anxiety, Denies Depressed Physical Exam-General Problems Physical Exam Vital Signs Vital Sign - Last 12Hours 11/08/16 11/08/16 11/08/16 11/09/16 13:42 16:00 20:07 20:11 Temp 100.6 Pulse 123 Resp 20 B/P 104/53 Pulse Ox 90 O2 Delivery Room Air O2 Flow Rate 2.00 FiO2 75 Capillary Refill : Less Than 3 SecondsLess Than 3 Seconds General Appearance: WD/WN moderate distress other (pale) Eyes: Bilateral Eye EOMI, Bilateral Eye PERRL HEENT: pharynx normalNo scleral icterus (R), No scleral icterus (L) Neck: limited range of motionNo thyromegaly Respiratory: respiratory distress accessory muscle use wheezing Cardiovascular: no murmur tachycardia Gastrointestinal: non tender soft no organomegaly no pulsatile mass Extremities: no pedal edema no calf tenderness normal capillary refill Neurologic/Psychiatric: alert oriented x 3 Skin: cool pallor Data Review Labs Laboratory Tests 11/09/16 05:40: Anion Gap 13, BUN/Creatinine Ratio 29, Basophils # (Auto) , Basophils (%) (Auto ) , Blood Urea Nitrogen 37H, Calcium Level 8.6, Carbon Dioxide Level 16L, Chloride Level 103, Creatinine 1.29, Eosinophils # (Auto) , Eosinophils (%) ( Auto) , Estimat Glomerular Filtration Rate 53, Glucose Level 221H, Hematocrit 24L, Hemoglobin 7.7L, Lactate Dehydrogenase 186, Lymphocytes # (Auto) , Lymphocytes (%) (Auto) , Mean Corpuscular Hemoglobin 26, Mean Corpuscular Hemoglobin Concent 32, Mean Corpuscular Volume 82, Mean Platelet Volume , Monocytes # (Auto) , Monocytes (%) (Auto) , Neutrophils # (Auto) , Neutrophils ( %) (Auto) , Platelet Count 23*L, Potassium Level 5.2H, Red Blood Count 2.93L, Red Cell Distribution Width 21.6H, Sodium Level 132L, Thyroid Stimulating Hormone (TSH) 1.02, White Blood Count 7.6 11/09/16 16:40: Demarco Test YES-POS, Arterial Blood Base Excess -12.6L, Arterial Blood HCO3 14*L , Arterial Blood Oxygen Saturation 94, Arterial Blood Partial Pressure CO2 38, Arterial Blood Partial Pressure O2 78L, Arterial Blood Total CO2 14.9L, Arterial Blood pH 7.19*L, Blood Gas Inspired Oxygen 5, Blood Gas Patient Temperature 100.5, Blood Gas Puncture Site LT RADIAL, Blood Gas Ventilator Setting NO Microbiology 11/08/16 Blood Culture - Preliminary, Resulted No growth Assessment/Plan Assessment/Plan Assessment/Plan Hypotension Venous Insufficiency Pancytopenia with 23K Platelet count Discussed with pt the procedure and why he needs it (pressor support for his hypotension). The risk of bleeding is outweighed by benefit of supporting his cardiovascular system. He understood and central line was placed without difficulty. Portable CXR does not appear to show pneumothorax; will wait on radiology final reading, can use it for IV access. Clinical Quality Measures DVT/VTE Risk/Contraindication: Risk Factor Score Per Nursin RFS Level Per Nursing on Admit: 4+=Very High NOEL GREGORY DO Nov 09, 2016 23:01
[2016-11-09 23:30] LABS: MEAN CORPUSCULAR HEMOGLOBIN 27 PG (25-34); MEAN CORPUSCULAR HGB CONC 33 G/DL (32-36); MEAN CORPUSCULAR VOLUME 82 FL (80-99); RED BLOOD COUNT 3.05 10^6/uL (4.35-5.85)
[2016-11-09] MEDS ORDERED: NOREPINEPHRINE 4 MG in D5W 250 ML IV SCH (23:45)
[2016-11-09 23:48] LABS: WHITE BLOOD COUNT 10.2 10^3/uL (4.3-11.0)
[2016-11-09] MEDS ORDERED: NOREPINEPHRINE 4 MG/4 ML (LEVOPHED) AMP IV ONE (23:51)
[2016-11-09] MEDS ORDERED: D5W 250 ML (IVPB) 250 ML IV ONE (23:52)
[2016-11-09 23:53] LABS: ABG BASE EXCESS -6.2 MMOL/L (-2.5-2.5); ABG HCO3 18 MMOL/L (23-27); ABG OXYGEN SATURATION 99 % (94-100); ABG PCO2 30 MMHG (35-45); ABG PO2 128 MMHG (79-93); ABG TCO2 18.6 MMOL/L (21.0-31.0)
[2016-11-09 23:54] LABS: ABG BASE EXCESS -5.9 MMOL/L (-2.5-2.5); ABG HCO3 19 MMOL/L (23-27); ABG OXYGEN SATURATION 89 % (94-100); ABG PCO2 36 MMHG (35-45); ABG PO2 58 MMHG (79-93); ABG TCO2 19.9 MMOL/L (21.0-31.0)
[2016-11-09 23:56] LABS: PATIENT TEMP 99.2
[2016-11-09 23:58] LABS: ALLENS TEST YES-POS; PATIENT TEMP 99.2
[2016-11-10] VITALS (15 sets, daily range): BP systolic 78–115; BP diastolic 51–73
[2016-11-10 00:01] LABS: ABG PH 7.34 (7.37-7.43)
[2016-11-10 00:02] LABS: PLATELET COUNT 18 10^3/uL (130-400)
[2016-11-10 00:04] LABS: ALBUMIN 2.6 G/DL (3.2-4.5); CALCIUM 8.1 MG/DL (8.5-10.1); CREATININE SERUM 1.79 MG/DL (0.60-1.30); MAGNESIUM 1.5 MG/DL (1.8-2.4); POTASSIUM 5.2 MMOL/L (3.6-5.0)
[2016-11-10] MEDS ORDERED: SODIUM BICARB 8.4% 50 MEQ/50 ML (ABBOTT) SYR ONE (00:17)
[2016-11-10 00:27] LABS: TROPONIN I 0.52 NG/ML (<0.30)
[2016-11-10] MEDS ORDERED: SODIUM BICARB 8.4% 50 MEQ/50 ML (ABBOTT) SYR IV ONE ×2 (00:30→05:30)
[2016-11-10] MEDS ORDERED: NS IV 1000 ML 1,000 ML ONE (00:46)
[2016-11-10] MEDS ORDERED: ALBUMIN 5% 12.5 GM/250 ML 500 ML IV ONE ×2 (02:29→04:15)
[2016-11-10 04:27] LABS: ABG HCO3 21 MMOL/L (23-27); ABG OXYGEN SATURATION 99 % (94-100); ABG PCO2 38 MMHG (35-45); ABG PH 7.37 (7.37-7.43); ABG PO2 116 MMHG (79-93); ABG TCO2 22.4 MMOL/L (21.0-31.0)
[2016-11-10 04:29] LABS: MEAN CORPUSCULAR HEMOGLOBIN 27 PG (25-34); MEAN CORPUSCULAR HGB CONC 33 G/DL (32-36); MEAN CORPUSCULAR VOLUME 82 FL (80-99); RED BLOOD COUNT 3.03 10^6/uL (4.35-5.85); RED CELL DISTRIBUTION WIDTH 20.9 % (10.0-14.5)
[2016-11-10 04:30] LABS: ALLENS TEST YES-POS; PATIENT TEMP 99.2
[2016-11-10 04:42] LABS: ALBUMIN 2.8 G/DL (3.2-4.5); BILIRUBIN,TOTAL 3.1 MG/DL (0.1-1.0); CALCIUM 8.2 MG/DL (8.5-10.1); CREATININE SERUM 1.89 MG/DL (0.60-1.30); MAGNESIUM 1.5 MG/DL (1.8-2.4); PHOSPHORUS 3.9 MG/DL (2.3-4.7); TOTAL PROTEIN 6.1 G/DL (6.4-8.2)
[2016-11-10 04:47] LABS: WHITE BLOOD COUNT 10.2 10^3/uL (4.3-11.0)
[2016-11-10 04:49] LABS: PLATELET COUNT 15 10^3/uL (130-400)
[2016-11-10 05:35] LABS: INR 2.3 (0.8-1.4); PROTHROMBIN TIME PATIENT 25.2 SEC (12.2-14.7)
[2016-11-10] MEDS: PIPERACILLIN/TAZOBACTAM 4.5 GM/NS 100 ML IVPB IV SCH ×2 (05:44)
[2016-11-10] MEDS: MAGNESIUM 1 GM/100 ML IVPB 100 ML IV SCH ×2 (05:48→06:56)
[2016-11-10] MEDS ORDERED: NS IV 500 ML 500 ML ONE ×2 (06:00→10:10)
[2016-11-10] MEDS ORDERED: MAGNESIUM 1 GM/100 ML IVPB 100 ML IV SCH (06:00)
[2016-11-10] MEDS ORDERED: KCL 20 MEQ TAB (K-DUR) PO SCH (06:00)
[2016-11-10] MEDS ORDERED: POTASSIUM CL 10MEQ/50ML IVPB 50 ML IV SCH (06:00)
[2016-11-10] MEDS: RT-ALBUTEROL/IPRATROPIUM 3 ML (DUONEB) VIAL INH SCH ×2 (06:46→10:36)
[2016-11-10 07:17] LABS: FOLIC ACID 18.8 ng/mL (1.5-24.0)
--- NOTE | 2016-11-10 07:19 | Pulmonary Progress Note ---
Subjective Subjective/Events-last exam PT is worse today then he was yesterday. Exam Exam Vital Signs Date Time Temp Pulse Resp B/P Pulse Ox O2 Delivery O2 Flow Rate FiO2 11/10/16 06:47 113 31 100 60.00 11/10/16 06:25 99.1 110 20 95/64 100 75 11/10/16 06:10 99.7 111 22 93/66 100 75 11/10/16 06:00 110 34 93/66 100 NIV Bilevel 75.00 11/10/16 05:00 109 28 92/64 100 NIV Bilevel 75.00 11/10/16 04:10 108 37 100 75.00 11/10/16 04:00 109 33 80/58 100 NIV Bilevel 75.00 11/10/16 04:00 98 75.00 11/10/16 03:00 108 27 89/66 100 NIV Bilevel 75.00 11/10/16 02:00 107 39 80/56 100 NIV Bilevel 75.00 11/10/16 01:53 107 31 100 75.00 11/10/16 01:00 107 32 115/73 99 NIV Bilevel 75.00 11/10/16 01:00 107 11/10/16 00:29 99.7 105 20 85/65 100 NIV Bilevel 75.00 11/10/16 00:10 100 34 99 75.00 11/10/16 00:00 107 20 78/51 100 NIV Bilevel 75.00 11/10/16 00:00 100 75.00 11/09/16 23:00 101 36 76/57 100 NIV Bilevel 75.00 11/09/16 22:53 100 34 99 75.00 11/09/16 22:00 98 29 80/55 100 NIV Bilevel 75.00 11/09/16 21:00 98 14 71/54 100 NIV Bilevel 75.00 11/09/16 20:36 98 34 89 75.00 11/09/16 20:11 99.9 98 20 70/49 96 75 11/09/16 20:00 99.5 106 16 77/58 95 NIV Bilevel 75.00 11/09/16 20:00 95 75.00 11/09/16 19:00 98 11/09/16 19:00 98 20 73/54 100 NIV Bilevel 75.00 11/09/16 18:30 112 28 78/57 100 NIV Bilevel 70.00 11/09/16 18:15 115 22 77/55 95 NIV Bilevel 70.00 11/09/16 18:09 113 30 92 75.00 11/09/16 18:00 121 32 82/55 90 Nasal Cannula 6.00 11/09/16 17:55 90 6.00 11/09/16 17:53 100.5 123 25 95/70 90 Nasal Cannula 6.00 11/09/16 17:43 99.7 114 22 103/59 92 6.00 11/09/16 17:22 99.7 115 22 101/61 95 6.00 11/09/16 16:00 99.8 118 22 127/75 95 Nasal Cannula 2.00 11/09/16 14:36 91 4.00 11/09/16 13:00 101 11/09/16 12:00 99.9 102 24 122/82 96 Nasal Cannula 2.00 11/09/16 10:25 94 2.00 11/09/16 10:10 99.5 11/09/16 09:32 99.5 11/09/16 08:00 Room Air 2.00 11/09/16 08:00 99.5 108 24 108/60 99 Nasal Cannula 2.00 I & O 11/10/16 07:00 Intake Total 2575 ml Output Total 125 ml Balance 2450 ml General Appearance: Moderate Distress HEENT: TMs Normal Pharynx Normal Pale Conjunctivae (L) Pale Conjunctivae (R) Neck: Non Tender Other (decreased range of motion but unchanged from baseline as 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 Dry cough is noted with inspiration.) Cardiovascular: Regular Rate, Rhythm No Edema No JVD No Murmur Gallop/S4 Capillary Refill: Less Than 3 Seconds Gastrointestinal: non tender soft no organomegaly no pulsatile mass Extremity: No Calf Tenderness No Pedal Edema Other (purpura are noted and IV sites no petechiae are noted.) Neurologic/Psychiatric: Alert (anxious) Skin: Damp Pallor Results Lab Laboratory Tests 11/08/16 13:55 11/09/16 05:40 11/09/16 23:25 11/10/16 04:00 Assessment/Plan Assessment/Plan Worsening SOB with bilateral pleural effusions Currently Sp02 is 98% on 6l iter NC -Pt was given lasix today may need to repeat lasix if SOB worsens. -BiPAP PRN -Can do thoracentesis however pt will be high risk for complications sonny bleeding. If pt is converted to comfort care only I would recommend not doing thoracentesis. Sepsis with metabolic acidosis -Pt has bilateral pleural effusion BP is stable will not be aggressive with IVF -2 amps of NaHCO3 -Levaquin, and zosyn septic shock with liver shock -Pt is now on levophed Multiorgan failure Pancytopenia with significant thrombocytopenia of 23 -Pt is receiving platelets now Hyperkalemia -bicarb 2 amps s/p lasix Afib RVR -Cardiology following -Cardizem po currently Acute renal failure Diastolic CHF Pt's overall prognosis is very poor. I recommend comfort care only. Dr. Toscano is going to talk with family Clinical Quality Measures DVT/VTE Risk/Contraindication: Risk Factor Score Per Nursin RFS Level Per Nursing on Admit: 4+=Very High MALLY CALVILLO DO Nov 10, 2016 07:19
[2016-11-10] MEDS ORDERED: HYDROCORTISONE 100 MG/2 ML (Solu-CORTEF) VIAL IV SCH (07:30)
--- NOTE | 2016-11-10 07:47 | Diagnostic Imaging Report ---
INDICATION: Central line placement. Comparison with 11/08/2016. FINDINGS: Right jugular line present. Tip overlies the superior vena caval shadow in good position. There continues to be cardiomegaly. There are again noted bilateral pleural effusions with increasing bilateral alveolar infiltrates when compared with previous exam. IMPRESSION: 1. Satisfactory right central line placement. 2. Increasing infiltrate and effusion consistent with congestive failure. Dictated by: Dictated on workstation # [id number]
[2016-11-10] MEDS ORDERED: morphine INJ 4 MG/ML 1 ML (VIAL/SYRINGE) ONE (08:21)
--- NOTE | 2016-11-10 08:23 | ECHOCARDIOGRAPHY REPORT ---
PROCEDURE PHYSICIAN: HILARY DE PAZ DATE OF PROCEDURE: 11/09/2016 TWO DIMENSIONAL ECHOCARDIOGRAM REPORT PRIMARY PHYSICIAN: Dr. Foster OTHER PHYSICIAN: Dr. Toscano REFERRING PHYSICIAN: ORDERING PHYSICIAN: Dr. De Paz INDICATION FOR THE PROCEDURE: 1. Septicemia. 2. Shortness of breath. MEASUREMENTS DERIVED VALUES LV DIAMETER (LAX) NORMALS NORMALS Diastolic 5 (3.6-5.2) Eject. Fract. (60%+/-6%) Systolic (2.3-3.9) Diastolic Vol. % Shortening (0.22-0.42) Systolic Vol. Aortic Root 3.9 IVS THICKNESS Diastolic 1 (0.6-1.1) LVPW THICKNESS Diastolic 0.9 (0.6-1.1) LA DIAMETER Systolic 4.3 (2.1-3.7) DESCRIPTION: Two-dimensional echocardiography shows normal global left ventricular systolic function with normal regional wall motion. Aortic, mitral and tricuspid valve leaflets show good leaflet excursion. There is no significant pericardial effusion. Doppler imaging shows trivial to mild mitral and tricuspid regurgitation. There is no Doppler evidence of any significant valvular stenosis. Aortic valve leaflet structure is not very well visualized. Pulmonary artery systolic pressure is estimated to be approximately 40 mmHg. Good subcostal views are not available. The study is not adequate for evaluation of intracardiac shunt. CONCLUSIONS: 1. Normal global left ventricular systolic function with an ejection fraction of approximately 60 to 65%. 2. Mild mitral annular calcification and mild aortic valve sclerosis without evidence for significant valvular stenosis. 3. Trivial to mild mitral and tricuspid regurgitation. 4. Pulmonary artery systolic pressure is estimated to be approximately 40 mmHg. Job ID: [id number] Dictated Date: 11/09/2016 18:38:04 Mechanical Assembly Technician Date: 11/10/2016 08:18:09 / narayan
[2016-11-10] MEDS: DILTIAZEM 300 MG (CARDIZEM CD) CAP PO SCH ×2 (08:31→09:04)
--- NOTE | 2016-11-10 08:54 | Progress Note-Cardiology ---
Cardiology SOAP Progress Note Subjective: Generally feels unwell: gen malaise and weakness Objective: I&O/Vital Signs Vital Sign - Last 12Hours 11/09/16 11/09/16 11/09/16 11/09/16 21:00 22:00 22:53 23:00 Pulse 98 98 100 101 Resp 14 29 34 36 B/P 71/54 80/55 76/57 Pulse Ox 100 100 99 100 O2 Delivery NIV Bilevel NIV Bilevel NIV Bilevel O2 Flow Rate 75.00 75.00 75.00 75.00 11/10/16 11/10/16 11/10/16 11/10/16 00:00 00:00 00:10 00:29 Temp 99.7 Pulse 107 100 105 Resp 20 34 20 B/P 78/51 85/65 Pulse Ox 100 100 99 100 O2 Delivery NIV Bilevel NIV Bilevel O2 Flow Rate 75.00 75.00 75.00 75.00 11/10/16 11/10/16 11/10/16 11/10/16 01:00 01:00 01:53 02:00 Pulse 107 107 107 107 Resp 32 31 39 B/P 115/73 80/56 Pulse Ox 99 100 100 O2 Delivery NIV Bilevel NIV Bilevel O2 Flow Rate 75.00 75.00 75.00 11/10/16 11/10/16 11/10/16 11/10/16 03:00 04:00 04:00 04:10 Pulse 108 109 108 Resp 27 33 37 B/P 89/66 80/58 Pulse Ox 100 98 100 100 O2 Delivery NIV Bilevel NIV Bilevel O2 Flow Rate 75.00 75.00 75.00 75.00 11/10/16 11/10/16 11/10/16 11/10/16 05:00 06:00 06:10 06:25 Temp 99.7 99.1 Pulse 109 110 111 110 Resp 28 34 22 20 B/P 92/64 93/66 93/66 95/64 Pulse Ox 100 100 100 100 O2 Delivery NIV Bilevel NIV Bilevel O2 Flow Rate 75.00 75.00 FiO2 75 75 11/10/16 06:47 Pulse 113 Resp 31 Pulse Ox 100 O2 Flow Rate 60.00 Intake and Output 11/10/16 00:00 Intake Total 0 ml Output Total 25 ml Balance -25 ml Weight (Pounds): 242 Weight (Ounces): 7.0 Weight (Calculated Kilograms): 109.725380 Constitutional: AAO x 3 well-developed well-nourished Respiratory: No accessory muscle use, other (diminished bs at the bases) Cardiovascular: regular rate-rhythm S1 and S2 systolic murmur (soft GEETA at cardiac base) Gastrointestional: No tender, softNo guarding, No rebound, audible bowel sounds Extremities: other (mild bilat leg edema)No clubbing, No cyanosis Neurologic/Psychiatric: grossly intact power is 5/5 both on sides Skin: No rash on exposed areas, No ulcerations on exposed areas Results/Procedures: Labs Laboratory Tests 11/09/16 16:40: Demarco Test YES-POS, Arterial Blood Base Excess -12.6L, Arterial Blood HCO3 14*L , Arterial Blood Oxygen Saturation 94, Arterial Blood Partial Pressure CO2 38, Arterial Blood Partial Pressure O2 78L, Arterial Blood Total CO2 14.9L, Arterial Blood pH 7.19*L, Blood Gas Inspired Oxygen 5, Blood Gas Patient Temperature 100.5, Blood Gas Puncture Site LT RADIAL, Blood Gas Ventilator Setting NO 11/09/16 23:25: Demarco Test NA, Arterial Blood Base Excess -5.9L, Arterial Blood HCO3 19L, Arterial Blood Oxygen Saturation 89L, Arterial Blood Partial Pressure CO2 36, Arterial Blood Partial Pressure O2 58L, Arterial Blood Total CO2 19.9L, Arterial Blood pH 7.34*L, Blood Gas Inspired Oxygen 75% BIPAP, Blood Gas Patient Temperature 99.2, Blood Gas Puncture Site CENTRAL LINE, Blood Gas Ventilator Setting NO, Albumin 2.6L, Anion Gap 16H, BUN/Creatinine Ratio 25, Basophils # (Auto) , Basophils (%) (Auto) , Blood Urea Nitrogen 45H, Calcium Level 8.1L, Carbon Dioxide Level 16L, Chloride Level 102, Creatinine 1.79H, Eosinophils # (Auto) , Eosinophils (%) (Auto) , Estimat Glomerular Filtration Rate 36, Glucose Level 204H, Hematocrit 25L, Hemoglobin 8.1L, Lactic Acid Level 6.43*H, Lymphocytes # (Auto) , Lymphocytes (%) (Auto) , Magnesium Level 1.5L, Mean Corpuscular Hemoglobin 27, Mean Corpuscular Hemoglobin Concent 33, Mean Corpuscular Volume 82, Mean Platelet Volume , Monocytes # (Auto) , Monocytes (% ) (Auto) , Neutrophils # (Auto) , Neutrophils (%) (Auto) , Platelet Count 18*L, Potassium Level 5.2H, Red Blood Count 3.05L, Red Cell Distribution Width 21.0H, Sodium Level 134L, Troponin I 0.52*H, White Blood Count 10.2 11/09/16 23:35: Demarco Test YES-POS, Arterial Blood Base Excess -6.2L, Arterial Blood HCO3 18L, Arterial Blood Oxygen Saturation 99, Arterial Blood Partial Pressure CO2 30L, Arterial Blood Partial Pressure O2 128H, Arterial Blood Total CO2 18.6L, Arterial Blood pH 7.40, Blood Gas Inspired Oxygen 75% BIPAP, Blood Gas Patient Temperature 99.2, Blood Gas Puncture Site L RAD, Blood Gas Ventilator Setting NO 11/10/16 01:30: Lactic Acid Level 5.52*H 11/10/16 04:00: Activated Partial Thromboplast Time 40H, Alanine Aminotransferase (ALT/SGPT) 1160H, Albumin 2.8L, Alkaline Phosphatase 73, Demarco Test YES-POS, Anion Gap 15H , Arterial Blood Base Excess -3.0L, Arterial Blood HCO3 21L, Arterial Blood Oxygen Saturation 99, Arterial Blood Partial Pressure CO2 38, Arterial Blood Partial Pressure O2 116H, Arterial Blood Total CO2 22.4, Arterial Blood pH 7.37 , Aspartate Amino Transf (AST/SGOT) 2027H, BUN/Creatinine Ratio 25, Basophils # (Auto) , Basophils (%) (Auto) , Blood Gas Inspired Oxygen 75% BIPAP, Blood Gas Patient Temperature 99.2, Blood Gas Puncture Site R RAD, Blood Gas Ventilator Setting NO, Blood Urea Nitrogen 47H, Calcium Level 8.2L, Carbon Dioxide Level 19L, Chloride Level 101, Creatinine 1.89H, D-Dimer 3.28H, Eosinophils # (Auto) , Eosinophils (%) (Auto) , Estimat Glomerular Filtration Rate 34, Fibrinogen 427 , Glucose Level 223H, Hematocrit 25L, Hemoglobin 8.1L, INR Comment 2.3H, Lymphocytes # (Auto) , Lymphocytes (%) (Auto) , Magnesium Level 1.5L, Mean Corpuscular Hemoglobin 27, Mean Corpuscular Hemoglobin Concent 33, Mean Corpuscular Volume 82, Mean Platelet Volume , Monocytes # (Auto) , Monocytes (% ) (Auto) , Neutrophils # (Auto) , Neutrophils (%) (Auto) , Phosphorus Level 3.9 , Platelet Count 15*L, Potassium Level 5.0, Prothrombin Time 25.2H, Red Blood Count 3.03L, Red Cell Distribution Width 20.9H, Sodium Level 135, Total Bilirubin 3.1H, Total Protein 6.1L, White Blood Count 10.2 11/10/16 06:15: Lactic Acid Level 2.78*H 11/10/16 08:10: Lactic Acid Level 2.57*H Microbiology 11/08/16 Blood Culture - Preliminary, Resulted No growth Laboratory Tests 11/08/16 13:55 11/09/16 05:40 11/09/16 23:25 11/10/16 04:00 A/P: Assessment: * Multiorgan failure * Septicemia with metabolic acidosis * Pancytopenia, including marked anemia and thrombocytopenia * A fib with RVR * Not suitable for anticoag due to pancytopenia and coagulopathy * Ac renal insuff * Ac diastolic CHF (LVEF normal on echo of 11/09/16) * CAD, with a remote history of CABG, details unknown * S/p R hip replacement in 2013 Plan: * Complex management due to multiple comorbidities * Mr Mulligan has decided on comfort care only * Will give oral dilt today, because rapid heart rate has been causing him discomfort and trying to control heart rate would be part of comfort care HILARY TARIQ MD FACP FAC CCDS Nov 10, 2016 08:54
[2016-11-10] MEDS ORDERED: PROMETHAZINE INJ 25 MG/ML (PHENERGAN) AMP IVP PRN (09:00)
[2016-11-10] MEDS ORDERED: RT-ALBUTEROL/IPRATROPIUM 3 ML (DUONEB) VIAL INH PRN (09:00)
[2016-11-10] MEDS ORDERED: morphine INJ 4 MG/ML 1 ML (VIAL/SYRINGE) IV PRN (09:00)
[2016-11-10] MEDS ORDERED: ARTIFICIAL TEARS OINT (LACRI-LUBE) 3.5 GM TUBE OU PRN (09:00)
[2016-11-10] MEDS ORDERED: ACETAMINOPHEN 650 MG SUPP (TYLENOL) PR PRN (09:00)
[2016-11-10] MEDS ORDERED: GLYCOPYRROLATE 0.2 MG/ML (ROBINUL) 2 ML VIAL IV PRN (09:00)
[2016-11-10] MEDS ORDERED: BISACODYL 10 MG SUPP (DULCOLAX) PR PRN (09:00)
[2016-11-10] MEDS ORDERED: ONDANSETRON 4 MG/2 ML (SDV) Z0FRAN IVP PRN (09:00)
[2016-11-10] MEDS ORDERED: SALIVA STIMULANT MOUTH SPRAY (BIOTENE) 1.5 OZ MM PRN (09:00)
[2016-11-10] MEDS ORDERED: ARTIFICAL TEARS 0.4 ML UNIT DOSE (REFRESH PLUS) OU PRN (09:00)
[2016-11-10] MEDS: LORazepam INJ 2 MG/ML (ATIVAN) VIAL IVP PRN ×2 (09:02→12:19)
[2016-11-10] MEDS ORDERED: morphine PCA 30 MG/30 ML VIAL IV PRN (09:15)
--- NOTE | 2016-11-10 09:42 | Diagnostic Imaging Report ---
INDICATION: Shortness of air, BiPAP COMPARISON: 11/09/2016 FINDINGS: Sternal wires appeared unremarkable enlargement of the cardiac silhouette not changed in magnitude or configuration. There is poor inspiratory volume having decreased from prior with a bilateral predominantly perihilar infiltrates and congestion with bilateral pleural effusions. IMPRESSION: Cardiomegaly, congestion and perihilar infiltrates or edema and bilateral pleural fluid redemonstrated probably at least mildly increased with progression itself exaggerated by a very poor inspiratory volume at today's study. No pneumothorax. Support apparatus stable. Dictated by: Dictated on workstation # [id number]
[2016-11-10] MEDS ORDERED: LEVOFLOXACIN 750 MG/D5W 150 ML (PRE-MIX) IV SCH (11:00)
--- NOTE | 2016-11-10 16:41 | Progress Note-Standard ---
Standard Progress Note Progress Notes/Assess & Plan Progress/Assessment & Plan 86-year-old male admitted with 3-4 month history of increasing weakness and body aches with significant worsening of symptoms during the past week. attempted bone marrow aspiration biopsy yesterday but patient could not tolerate this because of significant shortness of breath. He was found to be in atrial fibrillation with rapid ventricular response and impending respiratory failure. He was moved to intensive care unit with the cardiology and pulmonary consultations. He required the liver favored to maintain his blood pressure. Today morning labs indicated worsening renal failure, hepatic dysfunction and clinically worsening respiratory status. At this point patient is fair and his family had decided to proceed with best supportive care alone. He was transferred to med surg unit with comfort care. 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 Breathing slightly labored but the respiratory Rate is 20. Patient is somnolent and response to stimuli but easily slips back to sleep. Continue best supportive care and I will sign off. LUCIA SAUCEDO Nov 10, 2016 16:41
--- NOTE | 2016-11-10 17:02 | Progress Note-Hospitalist ---
Subjective HPI/CC On Admission Mr. Mulligan is an 86-year-old white male who called our office on the afternoon of the . He stated that he was too weak to get of his chair and not felt well for several weeks. He is instructed to call EMS services to bring him to the emergency room as this is very uncharacteristic 4 Gabriel who lives alone at home and is self-sufficient normally cuts his own firewood etc. He reports shortness of breath currently was in [id number] respiratory distress and slightly confused. History taking was difficult secondary to this. He denied chills or fever reporting poor by mouth intake for the past week and extreme fatigue. To me he estimated that he had not felt well for a month on Dr. Powell interview yesterday he had indicated that it may have been longer. he denied chest pain orthopnea PND or lower extremity edema. He also denied sore throat head congestion or myalgia. I will need to review my office records but I had not seen him since last fall. He has a past history of coronary artery disease long-standing hypertension and diabetes that have been under control on oral agents. Date Seen 11/10/16 Subjective/Events-last exam Mr. Mulligan developed progressive shortness of breath and hypotension overnight. Liver function tests of become severely elevated creatinine levels are going up and his INR level is now over 2 on no anticoagulant therapy. There has been no evidence for bleeding. He was transferred to the intensive care unit and placed on BiPAP therapy. He is also on levo fed and had received a dose of Lasix. He currently denies pain and is oriented 2 tolerating BiPAP. Objective Exam Vital Signs Vital Sign - Last 12Hours 11/08/16 11/08/16 11/08/16 11/09/16 13:42 16:00 20:07 20:11 Temp 100.6 Pulse 123 Resp 20 B/P 104/53 Pulse Ox 90 O2 Delivery Room Air O2 Flow Rate 2.00 FiO2 75 Capillary Refill : Less Than 3 SecondsLess Than 3 Seconds General Appearance: Moderate Distress Other (2 weak to move without assistance.) Respiratory: Other (Fine rales noted anteriorly no wheezing appreciated decreased breath sounds in bases.) Cardiovascular: Other (Regular tachycardia no murmurs appreciated) Gastrointestinal: Other (Bowel sounds hypoactive mild bilateral upper quadrant discomfort to palpation no rebound or guarding noted) Extremity: Other (Acute renal purpura noted no petechia present strongly school with significant pallor) Results/Procedures Lab Laboratory Tests 11/09/16 23:25 11/10/16 04:00 Assessment/Plan Assessment and Plan Assess & Plan/Chief Complaint 1. Multiorgan failure developing in addition to underlying DIC. With presentation of pancytopenia suggesting either myelodysplastic process aplastic anemia or leukemia we discussed terminal prognosis with the patient and family. All are in agreement with comfort care. Orders will be written we'll be initiating morphine per BLACK TOP SPREADER MACHINE OPERATOR to control symptoms of shortness of breath. We have converted the patient to O2 per nasal cannula and I will return this afternoon to repeat evaluation to ensure patient comfort. Dr. Machado in Dr. Powell have been notified about patient and family's wishes and are in agreement. MONIQUE VALDES MD Nov 10, 2016 17:02
[2016-11-11 05:28] LABS: CALCIUM IONIZED 1.08 mmol/L (1.16-1.32); CORRECTED IONIZED CALCIUM 1.03 mmol/L (1.16-1.32)
--- NOTE | 2016-11-11 08:51 | Discharge Summary-Hospitalist ---
Diagnosis/Chief Complaint Date of Admission Nov 08, 2016 at 15:26 Date of Discharge Nov 10, 2016 at 20:02 Admission Diagnosis 1. Pancytopenia with questionable pneumonia. Considering pancytopenia and immune compromise status agree with broad-spectrum antibiotics as underlying sepsis is possible. Prognosis is quite poor as numerous life-threatening illnesses are possible with bone marrow biopsy to evaluate for myelodysplastic syndromes, aplastic anemia leukemia etc. is pending per Dr. Powell. For this patient's previous as well as ongoing wishes will continue DO NOT RESUSCITATE status. We'll initiate low-dose morphine and when necessary anti-emetic therapy. 2. Hypertension we'll be holding antihypertensive therapy. 3. Type II diabetes mellitus will be holding oral hypoglycemics at this time. We will continue to monitor. 4. History of coronary artery disease. Discharge Diagnosis 1. Multiorgan failure developing in addition to underlying DIC. With presentation of pancytopenia suggesting either myelodysplastic process aplastic anemia or leukemia we discussed terminal prognosis with the patient and family. All are in agreement with comfort care. Orders will be written we'll be initiating morphine per DATA POWER CONSULTANT to control symptoms of shortness of breath. We have converted the patient to O2 per nasal cannula and I will return this afternoon to repeat evaluation to ensure patient comfort. Dr. Machado in Dr. Powell have been notified about patient and family's wishes and are in agreement. Reason Hospital Visit/Course Mr. Mulligan is an 86-year-old white male who called our office on the afternoon of the . He stated that he was too weak to get of his chair and not felt well for several weeks. He is instructed to call EMS services to bring him to the emergency room as this is very uncharacteristic 6 Gabriel who lives alone at home and is self-sufficient normally cuts his own firewood etc. He reports shortness of breath currently was in [id number] respiratory distress and slightly confused. History taking was difficult secondary to this. He denied chills or fever reporting poor by mouth intake for the past week and extreme fatigue. To me he estimated that he had not felt well for a month on Dr. Powell interview yesterday he had indicated that it may have been longer. he denied chest pain orthopnea PND or lower extremity edema. He also denied sore throat head congestion or myalgia. I will need to review my office records but I had not seen him since last fall. He has a past history of coronary artery disease long-standing hypertension and diabetes that have been under control on oral agents. Hospital course: Patient was admitted and started on IV fluids and appeared broad-spectrum antibiotic coverage. He developed progressive shortness of breath and multiorgan failure with severe liver function test elevation compatible shock liver and hypotension. He was too unstable to undergo bone marrow evaluation for his pancytopenia to get definitive diagnosis. I had a long discussion with the patient and family in the intensive care unit and all were in agreement with comfort care. I suspect asked to Dr. Powell that all possibilities were unlikely to be treatable such as myeloma dysplastic syndrome aplastic anemia or leukemia in an 83-year-old with long-standing diabetes and heart disease. Comfort care protocol was initiated. I saw the patient the morning of the eighth in the unit to initiate comfort care after discussion with the family. I returned around 5 p.m. The patient was comfortable on the floor with near agonal breathing pattern unresponsive. Discussed is likely expiration later that evening with family were placed with care. There were reassured that he was comfortable and later that evening roughly around 6 o'clock p.m. Discharge Summary Discharge Physical Examination Allergies: Coded Allergies: No Known Drug Allergies (Unverified , 11/08/16) Vitals & I&Os Vital Signs Date Time Temp Pulse Resp B/P Pulse Ox O2 Delivery O2 Flow Rate FiO2 11/10/16 15:34 5.00 11/10/16 08:00 98.2 112 30 87/63 100 NIV Bilevel 11/10/16 08:00 60 Hospital Course Labs (last 24 hrs) Laboratory Tests 11/10/16 16:06: Lab Scanned Report Transfusion Reaction Form Microbiology 11/08/16 Blood Culture - Preliminary, Resulted No growth Discharge Home Medications: Active Scripts Active Reported Actos (Pioglitazone HCl) 30 Mg Tablet 15 Mg PO DAILY TAKES 1/2 OF A (30 MG) TABLET Simvastatin 40 Mg Tablet 20 Mg PO DAILY TAKES 1/2 OF A (40 MG) TABLET Irbesartan 300 Mg Tablet 150 Mg PO DAILY TAKES 1/2 OF A (300 MG) TABLET Multiple Vitamin (Multivitamins) 1 Tab Tablet 1 Tab PO DAILY Instructions to patient/family Please see electonic discharge instructions given to patient. Clinical Quality Measures DVT/VTE Risk/Contraindication: Risk Factor Score Per Nursin RFS Level Per Nursing on Admit: 4+=Very High MONIQUE VALDES MD Nov 11, 2016 08:51
[2016-11-11 09:23] LABS: CALCIUM PH 7.32
--- NOTE | 2016-11-11 09:46 | OPERATIVE REPORT ---
PROCEDURE PHYSICIAN: NOEL GREGORY DATE OF PROCEDURE: 11/09/2016 PREOPERATIVE DIAGNOSIS: 1. Venous insufficiency. 2. Hypertension. 3. Pancytopenia. POSTOPERATIVE DIAGNOSIS: 1. Venous insufficiency. 2. Hypertension. 3. Pancytopenia. PROCEDURE: Insertion of triple-lumen catheter, right IJ with ultrasound guidance SURGEON: Dr. Gianna RÍOS ASSIST: None. ANESTHESIA: Just local lidocaine. BLOOD LOSS: Less than 5 mL POSTOPERATIVE CONDITION: Stable. INDICATION FOR THE PROCEDURE: The patient is an 86-year-old male who was recently diagnosed with pancytopenia. They attempted a bone marrow and then he got hypotensive, having trouble breathing and in ICU needed central line placement for pressor use. FINDINGS: The patient had right IJ placed without any difficulty with ultrasound guidance. PROCEDURE NOTE: After informed consent was obtained patient was in his bed. He was sterilely prepped and draped in the normal fashion. Local lidocaine used to infiltrate the right neck and with ultrasound guidance a sterile sound placed. I could see a large IJ, advanced the needle with negative inspiration directly toward this large IJ. Saw the needle begin to push on the outside of the IJ wall and then got a good flash of blood. I remove the syringe, placed a guidewire using Seldinger technique. It went in easily and removed the needle made a stab incision at the guidewire and then over the guidewire placed a dilator using the Seldinger technique and then removed the dilator and then over the guidewire placed the triple-lumen catheter. It went in easily removed the guidewire then aspirated and flushed each at the 3 ports. Flushed with normal sterile saline. Placed the caps on catheters and then sutured this in place with a 2-0 silk suture. The patient tolerated this procedure well. Stat chest x-ray ordered regarding line placement was done. The area was sterilely dressed afterward by the nurse. Sponge, instrument and needle correct at the end of the case. Job ID: [id number] Dictated Date: 11/09/2016 22:53:52 Plow Mechanic Date: 11/11/2016 09:35:39 / amadeo
--- NOTE | 2016-11-15 16:32 | Physician Query-General Query ---
Physician Query-General Query to Physician: The medical record reflects the following clinical scenario: History/Risk factors: Patient admitted with pneumonia per H&P Per H&P: Considering pancytopenia and immune compromise status agree with broad- spectrum antibiotics as underlying sepsis is possible Clinical Findings: Temp 100.6, Pulse 123, Resp 20, B/P 104/53, WBC 3.3, Lactic acid 3.18 Treatment: broad spectrum antibiotics Question: Do you agree with the impression of sepsis per H&P? Please document a response in Progress Notes or Discharge Summary. 1. Yes _yes__ 2. No ___ 3. Other, with explanation of clinical findings 4. Clinically undetermined, no explanation for clinical findings Please remember a lack of response to the above will prompt a phone page by [facility]/ coding staff. In responding to this query, please exercise your independent professional judgment. The purpose of this communication is to more accurately reflect the complexity of your patients condition. The fact that a question is asked does not imply that any particular answer is desired or expected. Thank you for your timely response to this clarification. PHYSICIAN RESPONSE: Based on the clinical findings in the record, please respond to the query above on this document as an addendum. Possible, probable, or questionable diagnosis can be coded for INPATIENTS ONLY. Physician Response: Physician Response yes If you have questions please contact: Metallurgist Helper: Ext: Thank you for your time and cooperation. Clinical Pilates Coordinator/Metallurgist Helper This is a permanent part of the medical record JUAN A SCHMID Nov 15, 2016 16:31 MONIQUE VALDSE MD Nov 19, 2016 12:30
== END 2016-11-10 20:02 | disposition expired | DRG 871 ==
LOC: EDUNIT# 12:19 → ER 12:23 → 4TH 15:26 → ICU 11-09 18:10 → 4TH 11-10 16:21
PROVIDERS: ADMIT Internal Medicine; ATTEND Internal Medicine
PROC: 02HV33Z Insertion of Infusion Device into Superior Vena Cava, Percutaneous Approach (ICD-10-PCS; principal; 2016-11-09)
DX: A41.9 Sepsis, unspecified organism (principal); J18.9 Pneumonia, unspecified organism; D61.818 Other pancytopenia; N17.9 Acute kidney failure, unspecified; I50.31 Acute diastolic (congestive) heart failure; J90 Pleural effusion, not elsewhere classified; R65.21 Severe sepsis with septic shock; Z66 Do not resuscitate; Z51.5 Encounter for palliative care; I25.10 Atherosclerotic heart disease of native coronary artery without angina pectoris; D65 Disseminated intravascular coagulation [defibrination syndrome]; K72.00 Acute and subacute hepatic failure without coma; Z95.1 Presence of aortocoronary bypass graft; Z96.641 Presence of right artificial hip joint; E11.9 Type 2 diabetes mellitus without complications; Z79.84 Long term (current) use of oral hypoglycemic drugs; Z87.442 Personal history of urinary calculi; G47.33 Obstructive sleep apnea (adult) (pediatric); Z87.891 Personal history of nicotine dependence; I48.91 Unspecified atrial fibrillation; I11.0 Hypertensive heart disease with heart failure; I25.2 Old myocardial infarction; E87.5 Hyperkalemia; I87.2 Venous insufficiency (chronic) (peripheral); I95.9 Hypotension, unspecified
CPT/HCPCS: 36415; 71010; 71020; 80048; 80053; 82040; 82330; 82607; 82728; 82746; 82805; 83540; 83605; 83615; 83735; 83880; 84100; 84443; 84484; 85007; 85025; 85027; 85045; 85379; 85384; 85610; 85730; 86850; 86900; 86901; 86920; 87040; 93005; 93306; 94640; 94660; 94760; 96361; 96365